=== PATIENT | male | born 1975 | race Hispanic/Latino ===

== ENCOUNTER 2019-11-10 21:46 | Inpatient (IN) | payer OTHER, SELFPAY ==
[~2019-11-10] VITALS: Ht 180.3 cm; Wt 116.6 kg
[2019-11-10] MEDS ORDERED: SODIUM CHLORIDE 0.9% 1000ML 1,000 ML IV STA (21:48)
[2019-11-10] MEDS ORDERED: PIPER-TAZ 3.375 GM 50 ML IV STA (21:48)
--- NOTE | 2019-11-10 21:54 | Emergency Department Note ---
History of Present Illnes History of Present Illness History of Present Illness This is a 44 year old male presents to the ED for dyspnea of 2 days duration. Denies CP or cough. . Historian: Patient Arrival Mode: Car Bread Packer Required: No Onset (how long ago): day(s) Duration (how long): day(s) (2) Timing of current episode: constant Progression: worsening Context: recent illness Relieving factors: none Exacerbating factors: none Associated symptoms: shortness of breath, weakness Past Medical/Family History Physician Review I have reviewed the patient's past medical and family history. Any updates have been documented here. Past Medical History Recent Fever: Yes Clinical Suspicion of Infectio: Yes New/Unexplained Change in Ment: No Past Medical History: None Past Surgical History: None Social History Smoking Cessation: Never Smoker Alcohol Use: None Any Illegal Drug Use: No Review of Systems Review of Systems Constitutional: malaise, weakness EENTM: no symptoms Respiratory: dyspnea Gastrointestinal: no symptoms Genitourinary: no symptoms Musculoskeletal: no symptoms Neurological: no symptoms Psychological: no symptoms Endocrine: no symptoms Hematological/Lymphatic: no symptoms Review of other systems All other systems reviewed and negative. Physical Exam Related Data Allergies: Coded Allergies: No Known Allergies (Unverified , 11/10/19) Triage Vital Signs Vital Signs Date Time Temp Pulse Resp B/P (MAP) Pulse Ox O2 Delivery O2 Flow Rate FiO2 11/10/19 21:46 101.0 118 24 171/123 100 11/11/19 09:18 Room Air 11/12/19 00:15 2.0 Vital signs reviewed: Yes Physical Exam CONSTITUTIONAL Constitutional: well-developed, well-nourished HENT HENT: normocephalic, atraumatic, oropharynx clear/moist, nose normal HENT L/R: left ext ear normal, right ext ear normal EYES Eyes: PERRL, conjunctivae normal NECK Neck: ROM normal PULMONARY Pulmonary: effort normal, breath sounds normal CARDIOVASCULAR Cardiovascular: tachycardia GASTROINTESTINAL Abdominal: soft, nontender, bowel sounds normal GENITOURINARY Genitourinary: exam deferred SKIN Skin: warm, dry MUSCULOSKELETAL Musculoskeletal: ROM normal NEUROLOGICAL Neurological: alert, oriented x 3, no gross motor or sensory deficits PSYCHOLOGICAL Psychological: mood/affect normal, judgement normal Results Laboratory Laboratory Laboratory Tests Test 11/10/19 22:24 11/10/19 22:00 White Blood Count 6.37 x10e3/uL (4.8-10.8) Red Blood Count 4.33 x10e6/uL (4.3-5.7) Hemoglobin 12.0 g/dL (14.0-18.0) Hematocrit 38.2 % (38.2-49.6) Mean Corpuscular Volume 88.2 fL (81-99) Mean Corpuscular Hemoglobin 27.7 pg (28-32) Mean Corpuscular Hemoglobin Concent 31.4 g/dL (31-35) Red Cell Distribution Width 12.9 % (11.7-14.4) Platelet Count 186 x10e3/uL (140-360) Neutrophils (%) (Auto) 77.7 % (38.7-80.0) Lymphocytes (%) (Auto) 7.8 % (18.0-39.1) Monocytes (%) (Auto) 13.0 % (4.4-11.3) Eosinophils (%) (Auto) 0.6 % (0.0-6.0) Basophils (%) (Auto) 0.6 % (0.0-1.0) Neutrophils # (Auto) 4.9 (2.1-6.9) Lymphocytes # (Auto) 0.5 (1.0-3.2) Monocytes # (Auto) 0.8 (0.2-0.8) Eosinophils # (Auto) 0.0 (0.0-0.4) Basophils # (Auto) 0.0 (0.0-0.1) Absolute Immature Granulocyte (auto 0.02 x10e3/uL (0-0.1) Urine Color Yellow (YELLOW) Urine Clarity Clear (CLEAR) Urine pH 6 (5 - 7) Urine Specific [place] 1.020 (1.010-1.025) Urine Protein 1+ (NEGATIVE) Urine Glucose (UA) Negative (NEGATIVE) Urine Ketones Negative (NEGATIVE) Urine Blood 2+ (NEGATIVE) Urine Nitrite Negative (NEGATIVE) Urine Bilirubin Negative (NEGATIVE) Urine Urobilinogen 0.2 mg/dL (0.2 - 1) Urine Leukocyte Esterase Negative (NEGATIVE) Urine RBC 11-20 /HPF (0-5) Urine WBC 0-5 /HPF (0-5) Urine Epithelial Cells None /LPF (NONE) Urine Bacteria None /HPF (NONE) Sodium Level 142 mmol/L (136-145) Potassium Level 4.0 mmol/L (3.5-5.1) Chloride Level 109 mmol/L (98-107) Carbon Dioxide Level 19 mmol/L (22-29) Anion Gap 18.0 mmol/L (8-16) Blood Urea Nitrogen 54 mg/dL (7-26) Creatinine 6.20 mg/dL (0.72-1.25) Estimat Glomerular Filtration Rate 10 ML/MIN (60-) BUN/Creatinine Ratio 9 (6-25) Glucose Level 80 mg/dL (74-118) Lactic Acid Level 1.5 mmol/L (0.5-2.0) Calcium Level 6.1 mg/dL (8.4-10.2) Total Bilirubin 0.3 mg/dL (0.2-1.2) Aspartate Amino Transf (AST/SGOT) 14 IU/L (5-34) Alanine Aminotransferase (ALT/SGPT) 14 IU/L (0-55) Alkaline Phosphatase 102 IU/L (40-150) Creatine Kinase 373 IU/L (30-200) Creatine Kinase MB 1.20 ng/mL (0-5.0) Troponin I < 0.001 ng/mL (0-0.300) B-Type Natriuretic Peptide 478.5 pg/mL (0-100) Total Protein 7.1 g/dL (6.5-8.1) Albumin 3.6 g/dL (3.5-5.0) Globulin 3.5 g/dL (2.3-3.5) Albumin/Globulin Ratio 1.0 (0.8-2.0) Lab results reviewed: Yes Imaging Imaging results reviewed: Yes Impressions [place] [id number] Patient Name: MONAE RAMÍREZ JR MR #: [id number] : 1975 Age/Sex: 44/M Req #: [id number] Adm Physician: Ordered by: GRACY DOCKERY DO Report #: [id number] Location: ER Room/Bed: ____ Procedure: [id number] CT/CT CHEST WO Exam Date: 11/10/19 Exam Time: 2340 REPORT STATUS: Signed CT chest without enhancement CPT code: 23846 INDICATION: Shortness of breath, fever, mid chest pain TECHNIQUE: Thin collimation axial images obtained from the thoracic inlet to the level of the diaphragm without intravenous contrast. Dose reduction techniques used: Automated exposure control, adjustment of the mAs and/or kVp according to patient size, standardized low-dose protocol, and/or iterative reconstruction technique. RADIATION DOSE: Total DLP: 510.15 mGy*cm Estimated effective dose: (DLP x 0.015 x size factor) mSv CTDIvol has been reviewed. It is below the limits set by the Radiation Protocol Committee (RPC). COMPARISON: None. CHEST FINDINGS: Lymph nodes: No enlarged axillary or supraclavicular lymph nodes. Increased number of mediastinal lymph nodes measuring up to 8 mm in short axis. Thyroid: Visualized portions are normal in size. Low attenuating nodule in the anterior right lobe measures 9 mm. Mediastinum: The heart is top normal in size with small pericardial effusion. Main pulmonary artery measures 2.8 cm in diameter. The ascending aorta measures 3.3 cm in diameter. The esophagus is collapsed. Lungs: Right: Diffuse bronchial wall thickening. Mild interlobular septal thickening in the lung bases with peribronchovascular groundglass attenuation. Left: Diffuse bronchial wall thickening with peribronchovascular groundglass attenuation. Mild interlobular septal thickening of the lower lobe. No infiltrates or nodules. Pleura: No pleural effusion or pleural based mass. ABDOMEN FINDINGS: The kidneys are enlarged and contains multiple cysts of varying sizes and attenuations. Visualized portions of the liver, gallbladder, pancreas, spleen, and adrenal glands are unremarkable. Bones: There are healing fractures of the manubrium and right ribs #7 through 9. Vertebral body heights are symmetric. IMPRESSION: 1. Diffuse bronchial wall thickening and peribronchovascular groundglass airspace opacities suggestive of viral pneumonia. No confluent infiltrates. Mild interlobular septal thickening of the lower lobes. No infiltrates. 2. Enlarged kidneys containing multiple cysts suggestive of autosomal dominant polycystic renal disease. 3. Healing rib and sternal fractures as described above. Signed by: Dr. Naya Linares MD on 11/11/2019 12:18 AM Dictated By: NAYA LINARES MD Transcribed By: PILLO on 11/11/1917 COPY TO: DOCKERYGRACY ~ Procedures 12 Lead ECG Interpretation Bread Packer: Interpreted by ED physician Date: Nov 10, 2019 Time: 21:53 Prior WAFER FABRICATION OPERATOR tracings: reviewed Rhythm: sinus tachycardia Conduction: incomplete RBBB ST segments normal: Yes ST segments depression: V4, V5, V6 T waves normal: No T wave depression: V4, V5, V6 Other findings: LVH, LVH with strain, prolonged QTc interval Clinical Impression: abnormal ECG Assessment & Plan Assessment & Plan Final Impression: (1) Elevated blood pressure reading (2) Hypocalcemia (3) Viral pneumonia (4) Renal failure (5) COVID-19 Assessment & Plan patient wide range of symptoms and abnormal lab values. Patient confirmed COVID- 19 positive with abnormal creatinine levels. Plan to admit to the hospital for further evaluation. Depart Disposition: ADMITTED Medications in the ED Sodium Chloride 1,000 ml @ 0 mls/hr Q0M STAT IV Last administered on 11/10/19at 22:08; Admin Dose 999 MLS/HR; Start 11/10/19 at 21:48; Stop 11/10/19 at 21:52; Status DC Piperacillin Sod/ Tazobactam Sod 50 ml @ 50 mls/hr ONCE STAT IV Last administered on 11/10/19at 22:09; Admin Dose 50 MLS/HR; Start 11/10/19 at 21:48; Stop 11/10/19 at 22:47; Status DC Acetaminophen 650 mg ONCE ONCE PO Last administered on 11/10/19at 22:31; Admin Dose 650 MG; Start 11/10/19 at 22:30; Stop 11/10/19 at 22:31; Status DC Morphine Sulfate 4 mg ONCE PRN IV SEVERE PAIN (7-10) Last administered on 11/11/19at 10:10; Admin Dose 4 MG; Start 11/10/19 at 23:00; Stop 11/17/19 at 22:59 Calcium Gluconate 4.65 meq/Sodium Chloride 60 ml @ 60 mls/hr ONCE ONCE IV Last administered on 11/11/19at 00:23; Admin Dose 60 MLS/HR; Start 11/11/19 at 00:00; Stop 11/11/19 at 00:59; Status DC Hydralazine HCl 10 mg NOW STAT IV Last administered on 11/11/19at 00:23; Admin Dose 10 MG; Start 11/11/19 at 00:01; Stop 11/11/19 at 00:14; Status DC Calcium Gluconate 4.65 meq STK-MED ONCE .ROUTE ; Start 11/11/19 at 00:15; Stop 11/11/19 at 00:10; Status DC Sodium Chloride 50 ml @ ud STK-MED ONCE .ROUTE ; Start 11/11/19 at 00:16; Stop 11/11/19 at 00:10; Status DC Ondansetron HCl 4 mg Q4H PRN IV NAUSEA AND VOMITING Last administered on 11/11/19at 10:10; Admin Dose 4 MG; Start 11/11/19 at 00:45; Stop 11/11/19 at 14:15; Status DC Morphine Sulfate 4 mg Q4H PRN IV SEVERE PAIN (7-10); Start 11/11/19 at 00:45; Stop 11/11/19 at 13:58; Status DC GRACY DOCKERY DO Nov 10, 2019 21:54
[2019-11-10 22:20] LABS: BASOPHILS % 0.6 % (0.0-1.0); EOSINOPHILS % 0.6 % (0.0-6.0); HEMATOCRIT 38.2 % (38.2-49.6); LYMPHOCYTES # (AUTO) 0.5 (1.0-3.2); LYMPHOCYTES % 7.8 % (18.0-39.1); MEAN CORPUSCULAR HEMOGLOBIN 27.7 pg (28-32); MEAN CORPUSCULAR HGB CONC 31.4 g/dL (31-35); MEAN CORPUSCULAR VOLUME 88.2 fL (81-99); MONOCYTES # (AUTO) 0.8 (0.2-0.8); NEUTROPHILS # (AUTO) 4.9 (2.1-6.9); NEUTROPHILS % 77.7 % (38.7-80.0); PLATELET COUNT 186 x10e3/uL (140-360); RED BLOOD COUNT 4.33 x10e6/uL (4.3-5.7); RED CELL DISTRIBUTION WIDTH 12.9 % (11.7-14.4)
[2019-11-10] MEDS ORDERED: ACETAMINOPHEN 325 MG TAB PO ONE (22:30)
[2019-11-10 22:33] LABS: BILIRUBIN,URINE NEGATIVE (NEGATIVE); CLARITY,URINE CLEAR (CLEAR); COLOR,URINE YELLOW (YELLOW); KETONES,URINE NEGATIVE (NEGATIVE); LEUKOCYTE ESTERASE ,URINE NEGATIVE (NEGATIVE); NITRITE,URINE NEGATIVE (NEGATIVE); URINE UROBILINOGEN 0.2 mg/dL (0.2 - 1)
[2019-11-10 22:34] LABS: PROTEIN,URINE DIPSTICK 1+ (NEGATIVE)
[2019-11-10 22:40] LABS: ALANINE AMINOTRANSFERASE 14 IU/L (0-55); ALBUMIN 3.6 g/dL (3.5-5.0); ALKALINE PHOSPHATASE 102 IU/L (40-150); BLOOD UREA NITROGEN 54 mg/dL (7-26); BUN/CREATININE RATIO 9 (6-25); CARBON DIOXIDE 19 mmol/L (22-29); CHLORIDE 109 mmol/L (98-107); CREATINE KINASE 373 IU/L (30-200); EST GLOMERULAR FILTRATION RATE 10 ML/MIN (60-); GLUCOSE 80 mg/dL (74-118); SODIUM 142 mmol/L (136-145)
[2019-11-10 22:45] LABS: WBC,URINE (MAN) 0-5 /HPF (0-5)
[2019-11-10 22:46] LABS: CALCIUM 6.1 mg/dL (8.4-10.2)
[2019-11-10 22:48] LABS: B-TYPE NATRIURETIC PEPTIDE2 478.5 pg/mL (0-100)
[2019-11-10] MEDS: MORPHINE SULFATE INJ 4 MG/ML INJ 1ML IV PRN (23:08)
[2019-11-11] VITALS (8 sets, daily range): BP systolic 131–146; BP diastolic 91–100
[2019-11-11] MEDS ORDERED: HYDRALAZINE HCL 20 MG/ML VIAL IV STA (00:01)
--- NOTE | 2019-11-11 00:11 | Diagnostic Imaging Report ---
EXAMINATION: CHEST SINGLE (PORTABLE) COMPARISON: None INDICATION: Shortness of breath, fever, chest pain ^Y ^ERMD ORDER ^[id number] ^2340 ^Y DISCUSSION: Frontal view of the chest obtained at 2312 hours. HEART AND MEDIASTINUM: The heart is top normal in size. The descending thoracic aorta is tortuous LINES: None. LUNGS/PLEURA: The lungs are well inflated and clear. No pneumonia or pulmonary edema. Mild diffuse bronchial wall thickening. No pleural effusion or pneumothorax. BONES AND SOFT TISSUES: No focal osseous lesion. The soft tissues are normal. IMPRESSION: Mild diffuse bronchial wall thickening suggestive of bronchitis. No infiltrates. Signed by: Dr. Diego Linares MD on 11/11/2019 12:08 AM
[2019-11-11] MEDS ORDERED: CALCIUM GLUCONATE 10% INJ 0.465 MEQ/ML VIAL ONE (00:15)
[2019-11-11] MEDS ORDERED: SODIUM CHLORIDE 0.9% 50ML 50 ML ONE (00:16)
--- NOTE | 2019-11-11 00:21 | Diagnostic Imaging Report ---
CT chest without enhancement CPT code: 62249 INDICATION: Shortness of breath, fever, mid chest pain TECHNIQUE: Thin collimation axial images obtained from the thoracic inlet to the level of the diaphragm without intravenous contrast. Dose reduction techniques used: Automated exposure control, adjustment of the mAs and/or kVp according to patient size, standardized low-dose protocol, and/or iterative reconstruction technique. RADIATION DOSE: Total DLP: 510.15 mGy*cm Estimated effective dose: (DLP x 0.015 x size factor) mSv CTDIvol has been reviewed. It is below the limits set by the Radiation Protocol Committee (RPC). COMPARISON: None. CHEST FINDINGS: Lymph nodes: No enlarged axillary or supraclavicular lymph nodes. Increased number of mediastinal lymph nodes measuring up to 8 mm in short axis. Thyroid: Visualized portions are normal in size. Low attenuating nodule in the anterior right lobe measures 9 mm. Mediastinum: The heart is top normal in size with small pericardial effusion. Main pulmonary artery measures 2.8 cm in diameter. The ascending aorta measures 3.3 cm in diameter. The esophagus is collapsed. Lungs: Right: Diffuse bronchial wall thickening. Mild interlobular septal thickening in the lung bases with peribronchovascular groundglass attenuation. Left: Diffuse bronchial wall thickening with peribronchovascular groundglass attenuation. Mild interlobular septal thickening of the lower lobe. No infiltrates or nodules. Pleura: No pleural effusion or pleural based mass. ABDOMEN FINDINGS: The kidneys are enlarged and contains multiple cysts of varying sizes and attenuations. Visualized portions of the liver, gallbladder, pancreas, spleen, and adrenal glands are unremarkable. Bones: There are healing fractures of the manubrium and right ribs #7 through 9. Vertebral body heights are symmetric. IMPRESSION: 1. Diffuse bronchial wall thickening and peribronchovascular groundglass airspace opacities suggestive of viral pneumonia. No confluent infiltrates. Mild interlobular septal thickening of the lower lobes. No infiltrates. 2. Enlarged kidneys containing multiple cysts suggestive of autosomal dominant polycystic renal disease. 3. Healing rib and sternal fractures as described above. Signed by: Dr. Diego Linares MD on 11/11/2019 12:18 AM
[2019-11-11] MEDS ORDERED: MORPHINE SULFATE INJ 4 MG/ML INJ 1ML IV PRN (00:45)
[2019-11-11] MEDS ORDERED: ONDANSETRON HCL INJ 2MG/ML 2ML 2 MG/ML VIAL IV PRN ×2 (00:45→14:00)
--- OUTSIDE RECORDS SUMMARY | 2019-11-11 01:54 | XMS REPORT | Continuity of Care Document ---
Author Author [facility] t Organization [facility] Address [address] [place]quez [address] [place] [id number] Phone Unavailable Care Team Providers Care Jr. Java Developer Name Role Phone GRACY DOCKERY Unavailable Problems This patient has no known problems. Allergies, Adverse Reactions, Alerts This patient has no known allergies or adverse reactions. Medications This patient has no known medications. Procedures This patient has no known procedures. Results Test Description Test Time Test Comments Results Result Comments Source CT CHEST WO 2019-11-11 00:09:00 [place] [address] Patient Name: MONAE RAMÍREZ JR MR #: [id number] : 1975 Age/Sex: 44/M Req #: [id number] Adm Physician: Ordered by: GRACY DOCKERY DO Report #: [id number] Location: ER Room/Bed: Procedure: [id number] CT/CT CHEST WO Exam Date: 11/10/19 Exam Time: 2340 REPORT STATUS: Signed CT chest without enhancement CPT code: 78865 INDICATION: Shortness of breath, fever, mid chest pain TECHNIQUE: Thin collimation axial images obtained from the thoracic inlet to the level of the diaphragm without intravenous contrast. Dose reduction tawanda hniques used: Automated exposure control, adjustment of the mAs and/or kVp according to patient size, standardized low-dose protocol, and/or iterative reconstruction technique. RADIATION DOSE: Total DLP: 510.15 mGy*cm Estimated effective dose: (DLP x 0.015 x size factor) mSv CTDIvol has been reviewed. It is below the limits set by the Radiation Protocol Committee (RPC). COMPARISON: None. CHEST FINDINGS: Lymph nodes: No enlarged axillary or supraclavicular lymph nodes. Increased number of mediastinal lymph nodes measuring up to 8 mm in short axis. Thyroid: Visualized portions are normal in size. Low attenuating nodule in the anterior right lobe measures 9 mm. Mediastinum: The heart is top normal in size with small pericardial effusion. Main pulmonary artery measures 2.8 cm in diameter. The ascending aorta measures 3.3 cm in diameter. The esophagus is collapsed. Lungs: Right: Diffuse bronchial wall thickening. Mild interlobular septal thickening in the lung bases with peribronchovascular groundglass attenuation. Left: Diffuse bronchial wall thickening with peribronchovascular groundglass attenuation. Mild interlobular septal thickening of the lower lobe. No infiltrates or nodules. Pleura: No pleural effusion or pleural based mass. ABDOMEN FINDINGS: The kidneys are enlarged and contains multiple cysts of varying sizes and attenuations. Visualized portions of the liver, gallbladder, pancreas, spleen, and adrenal glands are unremarkable. Bones: There are healing fractures of the manubriu m and right ribs #7 through 9. Vertebral body heights are symmetric. IMPRESSION: 1. Diffuse bronchial wall thickening and peribronchovascular groundglass airspace opacities suggestive of viral pneumonia. No confluent infiltrates. Mild interlobular septal thickening of the lower lobes. No infiltrates. 2. Enlarged kidneys containing multiple cysts suggestive of autosomal dominant polycystic renal disease. 3. Healing rib and sternal fractures as described above. Signed by: Dr. Naya Linares MD on 11/11/2019 12:18 AM Dictated By: NAYA LINARES MD Transcribed By: PILLO on 11/11/1917 COPY TO: GRACY DOCKERY DO CHEST SINGLE (PORTABLE) 2019-11-11 00:06:00 [place] [address] Patient Name: MONAE RAMÍREZ JR MR #: [id number] : 1975 Age/Sex: 44/M Req #: [id number] Adm Physician: Ordered by: GRACY DOCKERY DO Report #: [id number] Location: ER Room/Bed: Procedure: [id number] DX/CHEST SINGLE (PORTABLE) Exam Date: 11/10/19 Exam Time: 2340 REPORT STATUS: Signed EXAMINATION: CHEST SINGLE (PORTABLE) COMPARISON: None INDICATION: Shortness of breath, fever, chest pain Y ERMD ORDER [id number] 2340 Y DISCUSSION: Frontal view of the chest obtained at 2312 hours. HEART AND MEDIASTINUM: The heart is top normal in size. The descending thoracic aorta is tortuous LINES: None. LUNGS/PLEURA: The lungs are well inflated and clear. No pneumonia or pulmonary edema. Mild diffuse bronchial wall thickening. No pleural effusion or pneumothorax. BONES AND SOFT TISSUES: No focal osseous lesion. The soft tissues are normal. IMPRESSION: Mild diffuse bronchial wall thickening suggestive of bronchitis. No infiltrates. Signed by: Dr. Naya Linares MD on 11/11/2019 12:08 AM Dictated By: NAYA LINARES MD Transcribed By: PILLO on 11/11/197 COPY TO: GRACY DOCKERY DO
[2019-11-11] MEDS: ACETAMINOPHEN 325 MG TAB PO PRN ×2 (01:59→15:36)
[2019-11-11] MEDS ORDERED: ACETAMINOPHEN 325 MG TAB ONE (02:06)
[2019-11-11 07:10] LABS: AMPHETAMINES SCREEN,URINE NEGATIVE (NEGATIVE); BENZODIAZEPINES SCREEN,URINE NEGATIVE (NEGATIVE); PHENCYCLIDINE SCREEN,URINE NEGATIVE (NEGATIVE)
[2019-11-11 07:14] LABS: CREATINE KINASE 331 IU/L (30-200)
--- NOTE | 2019-11-11 07:38 | NUR ---
Left voicemail to Dr. Lloyd informing about the renal consult.
[2019-11-11] MEDS ORDERED: SODIUM CHLORIDE 0.9% 250ML 250 ML ONE (08:02)
[2019-11-11] MEDS: AZITHROMYCIN 500MG/NS 250 ML 250 ML IV SCH (08:03)
[2019-11-11 08:35] LABS: ALBUMIN 3.5 g/dL (3.5-5.0); ALBUMIN/GLOBULIN RATIO 1.1 (0.8-2.0); ANION GAP 19.1 mmol/L (8-16); CREATININE, SERUM 6.04 mg/dL (0.72-1.25); POTASSIUM 4.1 mmol/L (3.5-5.1)
[2019-11-11 08:39] LABS: CALCIUM 6.2 mg/dL (8.4-10.2)
[2019-11-11] MEDS: MORPHINE SULFATE INJ 4 MG/ML INJ 1ML IV PRN (10:10)
[2019-11-11] MEDS ORDERED: CALCIUM GLUCONATE 10% INJ 4.65 MEQ in SODIUM CHLORIDE 0.9% 50ML 50 ML IV ONE ×3 (14:00)
[2019-11-11] MEDS ORDERED: SODIUM CHLORIDE 0.9% 1000ML 1,000 ML IV ONE (14:15)
[2019-11-11] MEDS: CALCIUM CARBONATE 500 MG CHEWABLE TABS PO SCH ×2 (14:17→21:00)
[2019-11-11] MEDS: CEFTRIAXONE SOD 1 GM/NS 50 ML 50 ML IV SCH (14:20)
--- NOTE | 2019-11-11 14:35 | NUR ---
Spoke with Dr. Damian' answering service regarding consultation.
--- NOTE | 2019-11-11 15:45 | Consultation ---
DATE OF CONSULTATION: HISTORY OF PRESENT ILLNESS: Mr. Jacobson is a 44-year-old gentleman who comes into the emergency room with shortness of breath for 2 days. The patient came to the emergency room where he was admitted. There was no fever and no chills. He had a temperature of 101.2 when he first came. His told me there was no fever. The patient has been sick for 2 days. PAST MEDICAL HISTORY: Denies. PAST SURGICAL HISTORY: Denies. ALLERGIES: NKA. SOCIAL HISTORY: Negative. LABORATORY DATA: White count 6.37, hemoglobin 12. His COVID-19 was positive. PHYSICAL EXAMINATION: GENERAL: He is currently alert and oriented, does not seem to be in acute distress. VITAL SIGNS: Stable, currently afebrile. HEENT: He is not icteric. NECK: Supple. CHEST: Clear. HEART: S1 and S2. No S3, S4, or murmur. ABDOMEN: Soft. IMPRESSION: COVID-19 on admission, pneumonia. We will put him on Rocephin and azithromycin, vitamin C and zinc supplement. MD PATRICK Gonzalez/VICENTE /[id number]
--- NOTE | 2019-11-11 15:59 | NUR ---
[facility] RECEIVED FOR HOME O2. CALL TO THE PT IN THE ROOM AND CELL PHONE LISTED ON FACE SHEET. NO ANSWER, LEFT VM. CALLED TO [facility]G UNIT; SPOKE W [facility]INCENT. STATES ROOM HAS NOT PHONE, BUT THEY WILL PUT ONE IN THERE. CM WILL F/U W THE PT.
--- NOTE | 2019-11-11 16:00 | Consultation ---
DATE OF CONSULTATION: Pulmonary Critical Care Consultation CHIEF COMPLAINT: Dyspnea. HISTORY OF PRESENT ILLNESS: The patient is a 44-year-old man. He has a history of hypertension. He reports shortness of breath for 1 to 2 days. He denies cough. He did have a fever earlier this morning. He came to the emergency department. His chest CT showed infiltrate, suggestive of viral pneumonia. His COVID test was positive. He also had a positive blood test for renal disease. His creatinine is 6 and his CO2 is 15. PAST MEDICAL HISTORY: 1. Hypertension. 2. The patient denies any prior history of kidney disease. 3. The patient denies any prior cardiac history. PAST SURGICAL HISTORY: Noncontributory. ALLERGIES: NO KNOWN DRUG ALLERGIES. FAMILY HISTORY: His mother has cysts on her kidneys. REVIEW OF SYSTEMS: The patient did have some fevers at home. He is not having any headache. He denies neck pain. He does not have cough. He does have some shortness of breath. He is not having any chest pain. He does not complain of abdominal pain. There is no nausea or vomiting. He has no leg edema. PHYSICAL EXAMINATION: VITAL SIGNS: The patient is afebrile. The blood pressure is 144/100 and saturation is 100%. The pulse is 88 and respiratory rate is 16. HEENT: Shows no facial swelling or erythema. CARDIAC: Reveals a regular rate and rhythm with normal S1 and S2. LUNGS: Auscultation of lungs reveals clear breath sounds bilaterally. There is no wheezing. ABDOMEN: Soft and nontender. There is no rebound or guarding. EXTREMITIES: Shows no leg edema or calf tenderness. There is no cyanosis or clubbing. SKIN: Shows no rashes. NEUROLOGICAL: Shows no focal abnormalities. RADIOGRAPHIC DATA: CT scan of the chest shows ground-glass opacities, suggestive of viral pneumonia and enlarged kidneys with multiple cysts. LABORATORY DATA: BUN to creatinine ratio is 52 to 6.04. Carbon dioxide is 15 and the chloride is 111. Calcium is 6.2. IMPRESSION: 1. Viral pneumonia and COVID-19 infection. 2. Fupve-ro-yujizll renal failure. 3. Polycystic kidney disease. 4. Hypertension. PLAN: 1. Oxygen. 2. Zithromax. 3. Judicious use of IV fluids and monitoring of creatinine. 4. Nephrology consultation. 5. Cardiology consultation. MD SHAY Iqbal/VICENTE /[id number]
--- NOTE | 2019-11-11 16:24 | Diagnostic Imaging Report ---
EXAM: US RENAL RETROPERITONEAL COMP DATE: 11/11/2019 2:21 PM INDICATION: Renal failure COMPARISON: CT chest without contrast from 11/10/2019 FINDINGS: The right kidney is enlarged measuring 13.2 x 8.2 x 7.1 cm. Cortical thickness is decreased and cortical echogenicity is increased. There are innumerable renal cysts present. The largest cyst measures 3.3 x 2.8 x 2.9 cm. No definite solid renal mass, hydronephrosis, or shadowing calculi is appreciated. The left kidney is enlarged measuring 16.1 x 10.0 x 9.2 cm. Cortical thickness is decreased cortical echogenicity is increased. There are innumerable renal cysts present. The largest measures 4.1 x 3.0 x 3.97 m. No definite solid renal mass, hydronephrosis, or shadowing calculi is appreciated. The partially distended urinary bladder demonstrates no significant abnormalities. Bilateral ureteral jets are noted. IMPRESSION: Enlarged, multicystic kidneys suggestive of autosomal dominant polycystic kidney disease. No sonographically evident solid renal mass or hydronephrosis appreciated. Signed by: Dr. Luca Oleary MD on 11/11/2019 4:20 PM
[2019-11-11] MEDS: ENOXAPARIN 30 MG/0.3 ML SYR SC SCH (16:33)
--- NOTE | 2019-11-11 16:45 | NUR ---
Left message to answering service of Dr. Graf regarding VBG results as instructed. Awaiting for call back.
--- NOTE | 2019-11-11 17:52 | NUR ---
Notified Dr. Graf the VBG results. No orders given.
--- NOTE | 2019-11-11 18:00 | Consultation ---
DATE OF CONSULTATION: Initial Nephrology Consultation Report REASON FOR CONSULTATION: Acute kidney injury. HISTORY OF PRESENT ILLNESS: Mr. Jacobson is a 44-year-old male, who presents to the hospital secondary to some dyspnea. He was found to be COVID positive. The history is very limited, but I am being asked to see him because his serum creatinine and BUN are 54 and 6.2 respectively. Later labs done, show BUN and creatinine of 52 and 6.0. We do not have much of old history available. I do not know what his baseline renal function is. We do not have any old records available. PAST MEDICAL HISTORY: There is not much of a past medical history as from what can be obtained. I do not see that he has any past medical history. PAST SURGICAL HISTORY: Unknown. SOCIAL HISTORY: Cannot be obtained. PHYSICAL EXAMINATION: Largely deferred secondary to the patient's COVID status. VITAL SIGNS: His blood pressure is 144/100, pulse is 88, respirations 16, afebrile. GENERAL: The patient is a male. He is ambulating. The remainder of the physical exam is deferred because of the COVID status. It is reported the patient has no edema. LABORATORIES: The patient's sodium 141, potassium 4.1, chloride 111, bicarbonate 15, BUN and creatinine 52 and 6.0 respectively, and calcium 6.2. Albumin is 3.5. On CT exam, the patient has enlarged kidneys with multiple cysts. Urinalysis shows 1+ protein, 2+ blood, 11-20 red cells and 0-5 white cells, no bacteria. IMPRESSION/PLAN: 1. Acute kidney injury in a patient, who is COVID positive versus acute kidney injury on chronic kidney disease versus chronic kidney disease. 2. COVID positive. 3. Hypocalcemia. 4. Possible metabolic acidosis. 5. Pneumonia. 6. Viral syndrome. 7. Possible autosomal dominant polycystic kidney disease. PLAN: At the present time, the patient is getting IV fluids. We do not know really how much of this is underlying chronic kidney disease and how much of this is acute. He is getting IV fluids. We will continue to give IV fluid to see how much of the renal function improves with IV fluids and IV contrast should be avoided. His calcium is very low, I will give him calcium gluconate and also oral Tums. I will check a venous blood gas to make sure the decrease in serum bicarbonate is secondary to metabolic acidosis and not respiratory alkalosis with metabolic compensation. We will try to get old records from the patient. I will follow the patient with you. Depending on what the venous blood gas shows, if it shows it is acidosis then we probably will start some sodium bicarbonate and probably will start orally, but the main thing is to correct his calcium before we correct his acidosis so that the hypocalcemia does not get worse. When the patient is over with his infections in a few days, I think collecting a 24-hour urine collection for protein and creatinine clearance will be in order. I will follow the patient with you. Thank you, Dr. Hamilton, for this consultation. Ather MD CHARITY Holguin/VICENTE /[id number]
--- NOTE | 2019-11-11 20:21 | History and Physical ---
CHIEF COMPLAINT: Chest pain and shortness of breath. HISTORY OF PRESENT ILLNESS: This is a 44-year-old male with past medical history of high blood pressure, presented to the ER with complaints of shortness of breath and chest pain, both started 2 days ago. He reported noted shortness of breath with exertion. He denies any fever, chills, nausea, vomiting, abdominal pain, ill contacts. He was noted to have . Denies any kidney disease. PAST MEDICAL HISTORY: Hypertension. PAST SURGICAL HISTORY: Reports tonsillectomy and debridement of his lower extremity . FAMILY MEDICAL HISTORY: Reports mother has kidney disease and grandmother with diabetes. SOCIAL HISTORY: He denies any tobacco, alcohol, or illicit drug use. ALLERGIES: NO KNOWN DRUG ALLERGIES. REVIEW OF SYSTEMS: Twelve systems negative except for as noted above. PHYSICAL EXAMINATION: VITAL SIGNS: Temperature 99.5, pulse 82, respirations 18, blood pressure 134/92, pulse ox is 100% on room air. GENERAL: No acute distress. HEENT: Normocephalic atraumatic. NECK: Supple. LUNGS: Decreased breath sounds. CARDIOVASCULAR: Regular rate and rhythm. GI: Soft and nontender. Obese. NEUROLOGIC: Alert, awake, and oriented x3. MUSCULOSKELETAL: Moves all extremities. SKIN: Dry. LABORATORY DATA: WBC 6.37, hemoglobin 12.0, hematocrit 38.2, platelets 186. Sodium 142, potassium 4.0, CO2 19, BUN of 54, creatinine 6.2, estimated GFR is 10. Glucose 80. Lactic acid 1.5, calcium UA negative. French PCR is detected. Blood culture is pending. IMAGING DATA: Chest x-ray, mild diffuse bronchial wall thickening suggestive of bronchitis, no infiltrates. CT chest shows diffuse bronchial wall thickening and peribronchovascular ground-glass opacity suggestive of bilateral pneumonia as above. IMPRESSION AND PLAN: 1. Acute respiratory distress due to viral COVID-19 pneumonia. He was started on Rocephin and azithromycin. Pulmonary and ID on board. 2. Acute kidney injury versus history of polycystic renal disease and diagnosed. Creatinine is 6.2. Nephrology has been consulted. Renal ultrasound is pending. 3. Questionable congestive heart failure. BNP is 478. Echocardiogram was done, which showed EF of 34%. We will consult Cardiology for further evaluation. 4. History of hypertension. Currently controlled. We will monitor for now. 5. Hypocalcemia. Calcium is 6.2. We will defer to Renal. 6. Elevated creatinine currently. Questionable rhabdomyolysis. Continue IV fluid and repeat labs. 7. DVT prophylaxis. Continue Lovenox. Dictated by MATY Mcdaniels Maribel Hamilton MD MY/MODL /[id number]
[2019-11-11] MEDS ORDERED: ZOLPIDEM TARTRATE 5 MG TAB PO PRN (21:00)
[2019-11-12] VITALS (8 sets, daily range): BP systolic 109–144; BP diastolic 75–115
[2019-11-12] MEDS: ACETAMINOPHEN 325 MG TAB PO PRN ×2 (00:12→22:49)
[2019-11-12 05:53] LABS: BASOPHILS % 0.2 % (0.0-1.0); EOSINOPHILS % 0.2 % (0.0-6.0); HEMATOCRIT 36.8 % (38.2-49.6); HEMOGLOBIN 11.5 g/dL (14.0-18.0); LYMPHOCYTES # (AUTO) 0.8 (1.0-3.2); LYMPHOCYTES % 18.1 % (18.0-39.1); MEAN CORPUSCULAR HEMOGLOBIN 27.4 pg (28-32); MEAN CORPUSCULAR HGB CONC 31.3 g/dL (31-35); MEAN CORPUSCULAR VOLUME 87.6 fL (81-99); MONOCYTES # (AUTO) 0.7 (0.2-0.8); MONOCYTES % 15.1 % (4.4-11.3); NEUTROPHILS # (AUTO) 2.9 (2.1-6.9); NEUTROPHILS % 66.2 % (38.7-80.0); PLATELET COUNT 157 x10e3/uL (140-360); RED CELL DISTRIBUTION WIDTH 13.1 % (11.7-14.4)
[2019-11-12 07:19] LABS: ALBUMIN 3.2 g/dL (3.5-5.0); ALBUMIN/GLOBULIN RATIO 1.1 (0.8-2.0); ANION GAP 16.6 mmol/L (8-16); CREATININE, SERUM 5.95 mg/dL (0.72-1.25); POTASSIUM 4.6 mmol/L (3.5-5.1)
[2019-11-12 07:22] LABS: CALCIUM 6.6 mg/dL (8.4-10.2)
[2019-11-12] MEDS: ASCORBIC ACID 500 MG TAB PO SCH (08:15)
[2019-11-12] MEDS: CALCIUM CARBONATE 500 MG CHEWABLE TABS PO SCH ×3 (08:15→21:14)
[2019-11-12] MEDS: AZITHROMYCIN 500MG/NS 250 ML 250 ML IV SCH (08:15)
[2019-11-12] MEDS ORDERED: CALCIUM GLUCONATE 10% INJ 4.65 MEQ in SODIUM CHLORIDE 0.9% 50ML 50 ML IV ONE (08:45)
--- NOTE | 2019-11-12 09:22 | Progress Note ---
DATE: SUBJECTIVE: The patient is afebrile. He still has some cough. He is not complaining of dyspnea or chest pain. PHYSICAL EXAMINATION: VITAL SIGNS: The blood pressure is 133/102, saturation is 100% on 2 L. The pulse is 80. HEENT: No facial swelling or erythema. CARDIAC: Reveals a regular rate and rhythm with normal S1 and S2. LUNGS: Auscultation of lungs shows clear breath sounds bilaterally. There is no wheezing. ABDOMEN: Soft and nontender. There is no rebound or guarding. EXTREMITIES: No leg edema or calf tenderness. There is no cyanosis or clubbing. SKIN: No rashes. NEUROLOGICAL: No focal abnormalities. LABORATORY DATA: The white blood cell count is 4.3 and the hemoglobin is 11.5. The platelet count is 157. The BUN to creatinine ratio is 52 to 5.95. Calcium is 6.6 and the albumin is 3.2. The carbon dioxide is 15. IMPRESSION: 1. Acute on chronic renal failure. 2. COVID-19 and viral pneumonia. 3. Hypertension. PLAN: 1. Continue Zithromax. 2. Continue oxygen. 3. Continue to monitor creatinine. 4. Discuss management of polycystic kidney disease with Nephrology and Dr. Hamilton. MD SHAY qIbal/VICENTE /[id number]
[2019-11-12] MEDS: CEFTRIAXONE SOD 1 GM/NS 50 ML 50 ML IV SCH (14:43)
[2019-11-12] MEDS: SODIUM BICARBONATE 650 MG TAB PO SCH (16:24)
[2019-11-12] MEDS: ENOXAPARIN 30 MG/0.3 ML SYR SC SCH (16:24)
--- NOTE | 2019-11-12 16:31 | NUR ---
progress [id number]
[2019-11-12] MEDS ORDERED: CARVEDILOL 3.125 MG TAB PO SCH (17:00)
--- NOTE | 2019-11-12 18:00 | Progress Note ---
DATE: 11/12/2019 CONSULTANTS: 1. Dr. Benjamin Falcon with Pulmonology. 2. Dr. Lloyd with Nephrology. 3. Dr. Medeiros with Infectious Disease. 4. Dr. Damian with Cardiology. CHIEF COMPLAINT: Shortness of breath. SUBJECTIVE: The patient reports he is feeling better today, shortness of breath improved. He denies any chest pain, nausea, vomiting, or shortness of breath. PHYSICAL EXAMINATION: VITAL SIGNS: Temperature 98.6, pulse is 86, respirations 18, blood pressure 127/96, pulse ox is 100% on 2 L of nasal cannula. GENERAL: No acute distress. HEENT: Normocephalic, atraumatic. CARDIAC: Regular rate and rhythm. LUNGS: Decreased breath sounds. ABDOMEN: Soft and nontender, obese. MUSCULOSKELETAL: Moves all extremities. No edema noted. SKIN: Dry and intact. NEUROLOGIC: Alert, awake, and oriented x3. PSYCH: Calm. LABORATORY DATA: WBC 4.31, hemoglobin 11.5, hematocrit 36.8. Sodium 138, potassium 4.6, CO2 15, creatinine 5.95. Estimated GFR is 10. Lactic acid 1.5, calcium 6.6, AST 14, ALT 10. Renal ultrasound shows enlarged multi-cystic kidneys suggestive of autosomal dominant polycystic kidney disease. No hydronephrosis or renal mass noted. IMPRESSION: 1. Acute respiratory distress due to viral COVID-19 pneumonia. Continue on Rocephin and azithromycin. Pulmonary and ID on board. 2. Acute on chronic kidney disease. Renal ultrasound shows likely polycystic kidney disease. Creatinine is 5.95 today. We will continue to monitor. 3. Acute systolic congestive heart failure. BNP is 478. Echo with an EF of 25 to 30%. New diagnosis. Cardiology on the case. 4. History of hypertension. We will continue current medications. 5. Hypocalcemia. We will defer to Renal. 6. Elevated CK. CK 295. We will repeat labs today. 7. Obesity. BMI of 37. 8. Deep vein thrombosis prophylaxis. Continue Lovenox. Dictated by Kathy Fierro, MATY Yiching James Hamilton MD MY/MODL /[id number]
--- NOTE | 2019-11-12 18:49 | Consultation ---
DATE OF CONSULTATION: 11/12/2019 Cardiology Consultation. CONSULTING PHYSICIAN: Tk Nelson M.D., Interventional Cardiology REASON FOR CONSULTATION: Shortness of breath. HISTORY OF PRESENT ILLNESS: A 44-year-old man with history of morbid obesity, presents with worsening fatigue and dyspnea on exertion, associated with cough and documented fever. He ruled in with COVID-19 positive PCR and abnormal imaging studies concerning for underlying viral pneumonia. Incidentally, BNP was noted to have elevation at 478 and troponin I has been negative x3. We have been consulted to further evaluate. Sean feels better since admission. He has no current complaints other than dyspnea with moderate activity. He denies orthopnea, paroxysmal nocturnal dyspnea, chest discomfort or any prior known history of cardiovascular disease. REVIEW OF SYSTEMS: Negative except for as noted above. PAST MEDICAL HISTORY: As per HPI. ALLERGIES: NO KNOWN DRUG ALLERGIES. PAST SURGICAL HISTORY: Denies smoking, alcohol, or drugs. FAMILY HISTORY: Noncontributory. PHYSICAL EXAMINATION: VITAL SIGNS: Temperature 98.9, heart rate 80, blood pressure 109/70, respiratory rate 16, and O2 saturation 100% on nasal cannula. GEN Alert, active, oriented Neck No JVD, supple CHEST: With scattered rales. CARDIOVASCULAR: Regular rate and rhythm. Normal S1, S2. No S3. No S4. No murmurs, no rubs. ABDOMEN: Soft. Bowel sounds positive. EXTREMITIES: Trace edema. CARDIOVASCULAR MEDICATIONS: Reviewed Lovenox 30 mg subcu daily. LABORATORY DATA: Reviewed, sodium 138, potassium 4.6, chloride 111, bicarbonate 15, BUN 52, creatinine 5.9, glucose 96. White blood cells 4, hemoglobin 11.5, platelets 157. AST 14, ALT 10, and alkaline phosphatase 73. BNP 478. Troponin I negative x3. UDS negative. Blood cultures negative x2 days. Ionized calcium is low at 0.9. Echocardiogram reviewed, remarkable for left ventricular systolic function of 25% to 30%. ASSESSMENT AND PLAN: 1. A 44-year-old woman presents with COVID-19, community-acquired pneumonia. 2. Metabolic acidosis. 3. Acute on chronic renal failure. 4. Ultrasound studies and imaging studies, concerning for polycystic kidney disease. 5. Hypertension. 6. Left ventricular systolic function 25% to 30% on inpatient echocardiogram with dilated left ventricle, acute on chronic systolic heart failure. 7. Hypokalemia. 8. Anemia. RECOMMEND: 1. Add carvedilol 3.125 mg every 12 hours with holding parameters. Continue metabolic optimization per Nephrology expertise. 2. Monitor volume status closely. Defer diuretic management to Nephrology given significant increase in creatinine and underlying metabolic acidosis. MD TAMIKA De Leon/VICENTE /[id number]
--- NOTE | 2019-11-12 19:00 | NUR ---
Resumed care of patient. Patient awake and resting in bed, no s/s of distress at this time. Bed locked and in lowest position, side rails up x3, call light placed within reach. Patient instructed to call for assistance if needed, verbalized understanding. All safety measures in place. Will continue to monitor.
[2019-11-12] MEDS: CARVEDILOL 3.125 MG TAB PO SCH (21:14)
[2019-11-13] VITALS (8 sets, daily range): BP systolic 125–149; BP diastolic 92–102
[2019-11-13 06:13] LABS: ANION GAP 16.2 mmol/L (8-16); CREATININE, SERUM 5.85 mg/dL (0.72-1.25); PHOSPHORUS 5.3 MG/DL (2.3-4.7); POTASSIUM 4.2 mmol/L (3.5-5.1)
[2019-11-13 06:16] LABS: CALCIUM 6.9 mg/dL (8.4-10.2)
--- NOTE | 2019-11-13 06:17 | NUR ---
CRITICAL LAB:CALCIUM Received a call from lab with a Critical Result of Calcium 6.9 . Daily gonzalez RN for the patient was notified Addendum: 11/13/19 at 0619 by Concha Alicea RN Amended: Links added.
--- NOTE | 2019-11-13 06:32 | NUR ---
Notified Dr. Hamilton regarding calcium level of 6.9. No new orders received.
[2019-11-13 06:55] LABS: CALCIUM IONIZED 0.9 mmol/L (1.09-1.30)
--- NOTE | 2019-11-13 07:23 | NUR ---
ASSUMED CARE. AAOX3. RESTING IN BED. ACYANOTIC. NO DISTRESS NOTED. CALL LIGHT IN REACH. SIDERAILS UP X2. BED LOW.
[2019-11-13] MEDS: AZITHROMYCIN 500MG/NS 250 ML 250 ML IV SCH (08:49)
[2019-11-13] MEDS: CALCIUM CARBONATE 500 MG CHEWABLE TABS PO SCH ×3 (08:50→21:45)
[2019-11-13] MEDS: ASCORBIC ACID 500 MG TAB PO SCH (08:50)
[2019-11-13] MEDS: SODIUM BICARBONATE 650 MG TAB PO SCH ×2 (08:50→17:34)
[2019-11-13] MEDS: CARVEDILOL 3.125 MG TAB PO SCH ×2 (08:51→21:45)
--- NOTE | 2019-11-13 09:49 | NUR ---
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 LET NURSE KNOW WHAT LABS TO ORDER FOR DIALYSIS.
--- NOTE | 2019-11-13 10:07 | Progress Note ---
DATE: SUBJECTIVE: Mr. Farmer is feeling much better. His breathing is much better. REVIEW OF SYSTEMS: He is feeling stronger. PHYSICAL EXAMINATION: GENERAL: He is currently alert, oriented, does not seem to be in acute distress. VITAL SIGNS: Stable, currently afebrile. HEENT: He is not icteric. NECK: Supple. CHEST: Clear bilaterally. COR: S1-S2. No murmurs. ABDOMEN: Soft. IMPRESSION: 1. Coronavirus disease-19 pneumonia, getting better. 2. Acute on chronic kidney disease. 3. History of hypertension. 4. History of persistent kidney disease. The patient will be discharged home with [facility]. Follow up in 2 weeks to stay in isolation, to be discharged home in the morning. Discussed with the patient, answered all his questions. MD PATRICK Gonzalez/VICENTE /[id number]
--- NOTE | 2019-11-13 14:54 | Progress Note ---
DATE: SUBJECTIVE: The patient is afebrile. He still has some malaise. PHYSICAL EXAMINATION: VITAL SIGNS: The blood pressure is 129/100. Saturation is 99%. HEENT: No facial swelling or erythema. CARDIAC: Regular rate and rhythm with a normal S1, S2. LUNGS: Auscultation of lungs reveals clear breath sounds bilaterally. There is no wheezing. ABDOMEN: Soft, nontender. There is no rebound or guarding. EXTREMITIES: No leg edema or calf tenderness. There is no cyanosis or clubbing. SKIN: No rashes. NEUROLOGICAL: No focal abnormalities. LABORATORY DATA: BUN to creatinine ratio is 54-5.85. The carbon dioxide is 15. The ionized calcium is 0.9. IMPRESSION: 1. Acute viral pneumonia and coronavirus disease-19 infection. 2. Acute on chronic kidney disease. 3. Acute systolic congestive heart failure. 4. Hypertension. PLAN: 1. Continue current cardiac regimen. 2. Continue to monitor creatinine. 3. Continue antibiotics. 4. Continue oxygen. Benjamin Falcon MD [facility]/MODL /[id number]
[2019-11-13] MEDS: CEFTRIAXONE SOD 1 GM/NS 50 ML 50 ML IV SCH (15:03)
--- NOTE | 2019-11-13 15:49 | NUR ---
AAOX3. ACYANOTIC. PATIENT TRANSFERRED TO NUCLEAR MEDICINE DEPARTMENT AT APPROXMATELY 1530 VIA WHEELCHAIR. NO DISTRESS NOTED.
--- NOTE | 2019-11-13 16:49 | NUR ---
progress [id number]
[2019-11-13] MEDS: ENOXAPARIN 30 MG/0.3 ML SYR SC SCH (17:34)
--- NOTE | 2019-11-13 19:09 | Progress Note ---
DATE: 11/13/2019 CONSULTANTS: 1. Dr. Benjamin Falcon with Pulmonology. 2. Dr. Lloyd with Nephrology. 3. Dr. Medeiros with Infectious Disease. 4. Dr. Damian with Cardiology. CHIEF COMPLAINT: Shortness of breath. SUBJECTIVE: The patient is sitting up in bed with no acute distress. He denies any chest pain, shortness of breath, nausea, vomiting, fever, or chills. PHYSICAL EXAMINATION: VITAL SIGNS: Temperature 96.8, pulse is 84, respirations 18, blood pressure 129/100, pulse ox is 99% on 2 L nasal cannula. GENERAL: No acute distress. HEENT: Normocephalic, atraumatic. CARDIOVASCULAR: Regular rate and rhythm, S1, S2 heard. LUNGS: With decreased breath sounds. ABDOMEN: Soft and nontender. Obese. MUSCULOSKELETAL: Moves all extremities. No edema. SKIN: Dry and intact. NEUROLOGIC: Alert, awake, and oriented x3. LABORATORY DATA: Sodium 140, potassium 4.2, CO2 15, anion gap 16.2, creatinine 5.85, estimated GFR is 11, calcium is 6.9, ionized calcium is 0.9, phosphorus 5.3, pending calcium and parathyroid hormone. IMPRESSION: 1. Acute respiratory distress due to COVID-19 pneumonia. Continue on Rocephin and azithromycin. Pulmonary and Infectious Disease on board. 2. Acute on chronic kidney disease. Renal ultrasound showed polycystic kidney disease. Creatinine with not much improvement 5.85 today. Nephrology on the case. Plan to have temporary catheter placement and dialysis started. 3. Acute systolic congestive heart failure. Echo with EF of 25%-30%. Started on carvedilol and fluid management per renal. Cardiology on the case. Medical management advised. 4. History of hypertension. Stable on beta blockers. 5. Hypocalcemia. Replaced by Renal. 6. Elevated CK. Trending down 239 today. 7. Obesity with BMI of 37. Lifestyle modification. 8. Deep vein thrombosis prophylaxis. Continue Lovenox. PLAN: To continue current treatment, temporary cath placement planned for dialysis. Dictated by MATY Mcdaniels Rafaelaching James Hamilton MD MY/MODL /[id number]
--- NOTE | 2019-11-13 19:09 | Progress Note ---
DATE: SUBJECTIVE: Mr. Jacobson is feeling well. There are no new complaints. His breathing is better. REVIEW OF SYSTEMS: HEENT: Negative. PULMONARY and CARDIAC: Negative. PHYSICAL EXAMINATION: GENERAL: He is currently alert, oriented, does not seem to be in acute distress. VITAL SIGNS: Stable, currently afebrile. HEENT: Not icteric. NECK: Supple. CHEST: Clear. ABDOMEN: Soft. LABORATORY DATA: Blood cultures are negative. IMPRESSION: 1. COVID-19, pneumonia. Overall, clinically improving. 2. Chronic kidney disease, creatinine 5.95. Renal is following. Acidosis probably due to acute on chronic kidney disease. 3. Congestive heart failure. 4. From Infectious Disease point of view, he is currently on Lovenox, Rocephin, azithromycin to finish 5 days, this is day #2. MD PATRICK Gonzalez/VICENTE /[id number]
[2019-11-13 19:41] LABS: INR 0.95; PROTHROMBIN TIME 13.2 seconds (11.9-14.5)
--- NOTE | 2019-11-13 19:44 | Progress Note ---
DATE: 11/13/2019 Cardiology Progress Note SUBJECTIVE: Mr. Jacobson denies any chest pain today. He has no other complaints at this time. OBJECTIVE: VITAL SIGNS: Temperature 98.2, heart rate 90, blood pressure 149/102, respiratory rate 18, O2 saturation 99% on room air. GENERAL: In no acute distress, alert. NECK: No JVD. CHEST: Clear to auscultation. CARDIOVASCULAR: Regular rate and rhythm. Normal S1, S2. No S3 or S4. ABDOMEN: Soft. Bowel sounds positive. EXTREMITIES: No edema. CARDIOVASCULAR MEDICATIONS: Reviewed. Carvedilol 3.125 mg every 12 hours, Lovenox 30 mg subcu daily. LABORATORY DATA: Reviewed. Sodium 140, potassium 4.2, chloride 113, bicarbonate 15, BUN 54, creatinine 5.8, glucose 83. White blood cells 4.3, hemoglobin 11.5, platelets 157. AST 14, ALT 10, and alkaline phosphatase 73. Total bilirubin 0.3. ASSESSMENT AND PLAN: A 44-year-old man presents with: 1. COVID-19 positive pneumonia. 2. Acute on chronic systolic heart failure. 3. Acute on chronic renal failure with metabolic acidosis and anemia. RECOMMEND: 1. Continue carvedilol. 2. Volume optimization and metabolic optimization per Nephrology expertise. 3. Continue supportive care for COVID. 4. assessment advised a later date once renal function recovered and/or if declared end-stage renal disease. MD TAMIKA De Leon/SHAUNNAL /[id number]
[2019-11-13] MEDS ORDERED: CALCIUM GLUCONATE 10% INJ 4.65 MEQ in SODIUM CHLORIDE 0.9% 50ML 100 ML IV ONE (21:00)
[2019-11-13] MEDS: ACETAMINOPHEN 325 MG TAB PO PRN (23:22)
[2019-11-14] VITALS (8 sets, daily range): BP systolic 125–149; BP diastolic 87–111
[2019-11-14 06:07] LABS: ANION GAP 19.4 mmol/L (8-16); CREATININE, SERUM 5.65 mg/dL (0.72-1.25); POTASSIUM 4.4 mmol/L (3.5-5.1)
[2019-11-14 06:09] LABS: CALCIUM 6.7 mg/dL (8.4-10.2)
[2019-11-14] MEDS: SODIUM BICARBONATE 650 MG TAB PO SCH ×3 (08:28→16:00)
[2019-11-14] MEDS: AZITHROMYCIN 500MG/NS 250 ML 250 ML IV SCH (08:28)
[2019-11-14] MEDS: ASCORBIC ACID 500 MG TAB PO SCH ×2 (08:28→09:00)
[2019-11-14] MEDS: CALCIUM CARBONATE 500 MG CHEWABLE TABS PO SCH ×5 (08:28→20:45)
[2019-11-14] MEDS: CARVEDILOL 3.125 MG TAB PO SCH ×3 (08:29→20:45)
--- NOTE | 2019-11-14 09:01 | Progress Note ---
DATE: SUBJECTIVE: The patient is scheduled to have dialysis catheter placed today. He will begin dialysis. He denies cough or dyspnea. He is not having fevers. PHYSICAL EXAMINATION: VITAL SIGNS: The patient is afebrile. The blood pressure is 131/96, saturation is 100%. HEENT: No facial swelling or erythema. CARDIAC: Reveals regular rate and rhythm with normal S1 and S2. LUNGS: Auscultation of lungs reveals clear breath sounds bilaterally. There is no wheezing. ABDOMEN: Soft and nontender. There is no rebound or guarding. EXTREMITIES: No leg edema or calf tenderness. There is no cyanosis or clubbing. SKIN: No rashes. IMPRESSION: 1. Trpxj-ze-jxtdqia renal failure. 2. Systolic cardiomyopathy. 3. Acute on chronic systolic congestive heart failure. 4. Viral pneumonia and COVID-19 infection. PLAN: 1. The patient will begin dialysis today. 2. Continue current cardiac regimen. 3. Continue supportive care for his COVID-19. Benjamin Falcon MD [facility]/SHAUNNAL /[id number]
--- NOTE | 2019-11-14 09:20 | NUR ---
Telephone visit made by blockers skiver. Auto Damage Trainee provided empathic listening and prayer. Provided information on how to reach blockers skiver, if needed. Will follow as able. ANTON [facility] O: [phone]
--- NOTE | 2019-11-14 09:20 | NUR ---
Telephone visit made by . Pt states his keith is and has the same illness. provided empathic listening and prayer. Provided information on how to reach procedure rn, if needed. Will follow as able. RODERICK [facility] O: [phone] Addendum: 11/14/19 at 0941 by Roderick Velasco CHAP CORRECTION: This note is inaccurate. Note belongs to a different patient. Please disregard this note! RODERICK MARY JANEAR [facility] Department O: [phone]
--- NOTE | 2019-11-14 09:42 | NUR ---
GAVE PACKET OF INFORMATION WITH COMM[employer] [employer] FOR ASSISTANCE WITH LOW TO NO INCOME TO PATIENT. RESOURCES THAT PATIENT MAY BE ABLE TO FOLLOW UP UPON DISCHARGE. PT EDUCATED ON EACH RESOURCE AND UNDERSTANDING HOW TO FOLLOW UP TO SEE IF QUALIFIED FOR EACH RESOURCE.
--- NOTE | 2019-11-14 10:26 | NUR ---
SPOKE WITH NURSE AND PT ABOUT FACILITY CHOICE FOR DIALYSIS. WILL FAX TO ADMISSION LINE FOR SNG, SIGNED CHOICE FILED IN CHART. PRINTED WHAT WAS AVAILABLE TO ME AND FAXED TO [phone]. CALLED AND SPOKE WITH IVANIA AND LET KNOW REFERRAL IS ON WAY AND THAT IT IS A COVID POSITIVE PT, SHE STATES THE POSITIVES GO TO THE [place] LOCATION, BUT REFERRAL WOULD START FOR THE [place] LOCATION. WILL FAX LABS, POST OP REPORT FOR THE CATHETER PLACEMENT AND DIALYSIS NOTES THEY ARE GIVEN AND OBTAINED.
--- NOTE | 2019-11-14 10:39 | NUR ---
DR PRIETO CALLED AND TOLD CM TO SEND TO [facility] BECAUSE THEY ARE ACCEPTING PTS. WILL COMPLETE THE FORMS AND FAX WHAT I HAVE AND SEND UPDATES.
--- NOTE | 2019-11-14 10:49 | NUR ---
[place] [facility] [place] AND COMPLETED REFERRAL SPECIFIC SHEET TO [place] AND FAXED TO
[2019-11-14] MEDS: CEFTRIAXONE SOD 1 GM/NS 50 ML 50 ML IV SCH (15:33)
[2019-11-14] MEDS: ENOXAPARIN 30 MG/0.3 ML SYR SC SCH ×2 (16:00→18:12)
--- NOTE | 2019-11-14 19:00 | NUR ---
Resumed care of patient. Patient awake and sitting in chair by window, no s/s of distress at this time. Patient instructed to call for assistance if needed, verbalized understanding. All safety measures in place. Will continue to monitor.
--- NOTE | 2019-11-14 20:05 | Progress Note ---
DATE: 11/14/2019 SUBJECTIVE: Mr. Jacobson is lying in bed comfortably. He is doing well overall. He is going to have a dialysis catheter tomorrow and then we can be arranged for dialysis. REVIEW OF SYSTEMS: Otherwise unremarkable. PHYSICAL EXAMINATION: GENERAL: He is currently alert, oriented. VITAL SIGNS: Stable, afebrile. HEENT: He is not icteric. NECK: Supple. CHEST: Clear. HEART: S1, S2. ABDOMEN: Soft. IMPRESSION AND PLAN: 1. Coronavirus disease-19 pneumonia, resolved. 2. Acute on chronic congestive heart failure. 3. Chronic kidney disease. 4. Systolic congestive heart failure consist of a cardiomyopathy. 5. Obesity. From Infectious Disease point of view, can discontinue antibiotic. Community-acquired pneumonia, resolved. We will continue Rocephin and azithromycin. Continue with the Lovenox. Discharge planning when dialysis is arranged. MD PATRICK Gonzalez/VICENTE /[id number]
[2019-11-14] MEDS: ACETAMINOPHEN 325 MG TAB PO PRN (20:56)
--- NOTE | 2019-11-14 22:45 | NUR ---
Spoke with dialysis nurse and clarified that patient does not yet have access, and is scheduled for catheter placement tomorrow morning.
--- NOTE | 2019-11-14 23:05 | Progress Note ---
DATE: Cardiology Progress Note SUBJECTIVE: No new complaints. OBJECTIVE: VITAL SIGNS: Temperature 98.2, heart rate 90, blood pressure 131/96, respiratory rate 18, and O2 saturation 99%. BMI 37. GENERAL: In no acute distress. Alert. NECK: No JVD. CHEST: Clear to auscultation. CARDIOVASCULAR: Regular rate and rhythm. Normal S1 and S2. ABDOMEN: Soft. EXTREMITIES: Trace edema. CARDIOVASCULAR MEDICATIONS: Reviewed. Carvedilol 3.125 mg every 12 hours and Lovenox 30 mg subcutaneous daily. STUDIES: Reviewed. Potassium 4.4, bicarbonate 15, and creatinine 5.6. Hemoglobin 11.5 and platelets 157. INR 0.9. ASSESSMENT AND PLAN: A 44-year-old man with, 1. Community-acquired COVID-19 pneumonia. 2. Wnouo-kz-cftuibu renal failure. 3. Metabolic acidosis. 4. Anemia. 5. Dwplq-ca-yfpmhnd renal failure. RECOMMEND: 1. Continue carvedilol. 2. Continue DVT prophylaxis. 3. Plans for dialysis catheter placement today and likely dialysis. Tk Nelson MD AFSebastien/MODL /[id number] MTDD
[2019-11-15] VITALS (10 sets, daily range): BP systolic 107–134; BP diastolic 81–107
--- NOTE | 2019-11-15 00:35 | Progress Note ---
DATE: 11/14/2019 CONSULTANTS: 1. Dr. Benjamin Falcon with Pulmonology. 2. Dr. Lloyd with Nephrology. 3. Dr. Medeiros with Infectious Disease. 4. Dr. Nelson with Cardiology. CHIEF COMPLAINT: Shortness of breath. SUBJECTIVE: The patient seen in the room with no acute distress. He denies any chest pain, shortness of breath, nausea, vomiting, fever, or chills. He reports he is feeling much better. Awaiting on HD catheter placement. PHYSICAL EXAMINATION: VITAL SIGNS: Temperature 98.4, pulse is 93, respirations 21, blood pressure 139/107, pulse ox is 100% on room air. GENERAL: No acute distress. HEENT: Normocephalic, atraumatic. CARDIOVASCULAR: Regular rate and rhythm. S1, S2 heard. LUNGS: Clear to auscultation. ABDOMEN: Soft and nontender. MUSCULOSKELETAL: Moves all extremities. No edema noted. SKIN: Dry and intact. NEUROLOGIC: Alert, awake, and oriented x3. LABORATORY DATA: Sodium 141, potassium 4.4, CO2 of 15, BUN 51, creatinine 5.65. Estimated GFR is 11. Calcium 6.7, ionized calcium 0.9, parathyroid is 72. IMPRESSION: 1. Acute respiratory distress due to viral pneumonia with COVID-19. Continue Rocephin and azithromycin. Pulmonary and ID on the case. 2. Acute renal failure. Renal ultrasound showed polycystic kidney disease. Creatinine 5.65 today. Nephrology on the case. Temporary HD catheter placement pending, and we will start dialysis. 3. Acute systolic congestive heart failure. Echo with EF of 25% to 30%. Started on carvedilol and fluid management per Renal. Cardiology on the case. Recommend medical management at this time. 4. History of hypertension. Stable on beta blockers. 5. Hypocalcemia. We will defer to Renal. 6. Elevated CK. Trending down. 7. Obesity with a BMI of 37. Lifestyle modification. 8. Deep vein thrombosis prophylaxis. Continue on Lovenox. PLAN: To continue current treatment, pending HD catheter placement and dialysis setup. Dictated by MATY Mcdaniels Maribel [place] MD MY/MODL :07:32 /[id number]
--- NOTE | 2019-11-15 04:37 | NUR ---
Spoke to Dr. Hamilton regarding patient's elevated temp of 100.2. Received orders to give IV Tylenol 1000 mg x 1.
[2019-11-15] MEDS ORDERED: ACETAMINOPHEN 1000 MG/100 ML IV STA (04:38)
[2019-11-15] MEDS: HYDRALAZINE HCL 20 MG/ML VIAL IV PRN (05:00)
--- NOTE | 2019-11-15 07:40 | NUR ---
patient leaving unit to go to IR for cath placement.
[2019-11-15] MEDS ORDERED: MIDAZOLAM HCL 2 MG/2 ML VIAL ONE (07:48)
[2019-11-15] MEDS ORDERED: FENTANYL CITRATE/PF 100MCG/2 ML INJ ONE (07:49)
[2019-11-15] MEDS ORDERED: HEPARIN SOD (PORCINE) 1000 UNIT/ML SDV ONE (07:49)
[2019-11-15] MEDS ORDERED: SODIUM CHLORIDE 0.9% 250ML 250 ML ONE (07:52)
--- NOTE | 2019-11-15 08:30 | NUR ---
report from IR- 14.5 [place] hemodialysis catheter packed with 3200 u heparin. line ready to use, okay to resume previous diet.
--- NOTE | 2019-11-15 08:30 | NUR ---
patient returned from IR. right chest wall cath in place. dressing cdi.
--- NOTE | 2019-11-15 09:20 | NUR ---
dialysis nurse at bedside to begin dialysis. patient consented. aware of treatment planned today and tomorrow.
[2019-11-15] MEDS: CARVEDILOL 3.125 MG TAB PO SCH ×2 (09:40→21:08)
[2019-11-15] MEDS: SODIUM BICARBONATE 650 MG TAB PO SCH ×2 (09:40→18:01)
[2019-11-15] MEDS: ASCORBIC ACID 500 MG TAB PO SCH (09:40)
[2019-11-15] MEDS: CALCIUM CARBONATE 500 MG CHEWABLE TABS PO SCH ×3 (09:40→21:08)
[2019-11-15] MEDS ORDERED: SODIUM CHLORIDE 0.9% 1000ML 2,000 ML ONE (10:06)
[2019-11-15] MEDS ORDERED: SODIUM CHLORIDE 0.9% 250ML 500 ML IV PRN (10:15)
[2019-11-15] MEDS ORDERED: HEPARIN SOD (PORCINE) 1000 UNIT/ML SDV IV PRN (10:15)
[2019-11-15] MEDS ORDERED: MANNITOL 25% 12.5GM/50 ML VIAL IV PRN (10:15)
[2019-11-15] MEDS ORDERED: SODIUM CHLORIDE 0.9% 1000ML 2,000 ML IV PRN (10:15)
[2019-11-15] MEDS: ACETAMINOPHEN 325 MG TAB PO PRN ×2 (10:56→18:02)
--- NOTE | 2019-11-15 12:47 | NUR ---
patient finished with dialysis. per dialysis nurse, no volume removed. blood only cleansed. patient tolerated well. vitals stable. sitting up for lunch. wctm.
--- NOTE | 2019-11-15 14:58 | NUR ---
SENT UPDATES TO [facility]
--- NOTE | 2019-11-15 16:13 | Diagnostic Imaging Report ---
PROCEDURE: Tunneled dialysis catheter placement Procedural Personnel Attending physician(s): Ceferino Boothe MD Fellow physician(s): None Resident physician(s): None Advanced practice provider(s): None Pre-procedure diagnosis: Acute kidney injury Post-procedure diagnosis: Same Indication (QCDR): Performance of hemodialysis Additional clinical history: None Complications: No immediate complications. IMPRESSION: Insertion of right-sided tunneled dialysis catheter, with tip in the expected location of the right atrium. Plan: The catheter may be used immediately. PROCEDURE SUMMARY: - Venous access with ultrasound guidance - Tunneled dialysis catheter insertion with fluoroscopic guidance - Additional procedure(s): None PROCEDURE DETAILS: Pre-procedure Consent: Informed consent for the procedure including risks, benefits and alternatives was obtained and time-out was performed prior to the procedure. Preparation (MIPS): The site was prepared and draped using all elements of maximal sterile barrier technique including sterile gloves, sterile gown, cap, mask, large sterile sheet, sterile ultrasound probe cover, hand hygiene and cutaneous antisepsis with 2% chlorhexidine. Medical reason for site preparation exception (MIPS): Not applicable Anesthesia/sedation Level of anesthesia/sedation: Moderate sedation (conscious sedation) 1mg Versed, 50mcg Fentanyl Anesthesia/sedation administered by: Independent trained observer under attending supervision with continuous monitoring of the patient?s level of consciousness and physiologic status Total intra-service sedation time (minutes): 30 Access Local anesthesia was administered. The vessel was sonographically evaluated and determined to be patent. Real time ultrasound was used to visualize needle entry into the vessel and a permanent image was stored. Vein accessed (QCDR): Internal jugular vein Internal jugular vein patency (QCDR): Patent or otherwise accessible on at least one side Access technique: Micropuncture set with 21 gauge needle Catheter placement An incision was made near the venous access site and the catheter was tunneled subcutaneously to the venous access site. The catheter was advanced via a peel-away sheath into the vein under fluoroscopic guidance. Catheter tip location was fluoroscopically verified and a permanent image was stored. Catheter placed: Covidien Palindrome Catheter cuff-to-tip length (cm): 19 Catheter flush: Heparin (1000 units/mL) Closure A sterile dressing was applied. Access site closure technique: Tissue adhesive Catheter securement technique: Non-absorbable suture Contrast Contrast agent: None Contrast volume (mL): NA Radiation Dose Fluoroscopy time (minutes): 0.1 Reference air kerma (mGy): 1.1 Additional Details Additional description of procedure: None Equipment details: None Specimens removed: None Estimated blood loss (mL): Less than 10 Standardized report: [id number] Attestation Signer name: Ceferino Boothe MD I attest that I was present for the entire procedure. I reviewed the stored images and agree with the report as written. Signed by: Ceferino Boothe MD on 11/15/2019 4:09 PM
--- NOTE | 2019-11-15 18:14 | Progress Note ---
DATE: SUBJECTIVE: Mr. Jacobson is feeling better. His breathing is better. PHYSICAL EXAMINATION: GENERAL: He is currently alert, oriented, does not seem in acute distress. VITAL SIGNS: Stable, currently afebrile. HEENT: He is not icteric. NECK: Supple. CHEST: Crackles bilateral. COR: S1 and S2. No murmur. ABDOMEN: Soft. IMPRESSION: 1. From Infectious Disease point of view, the patient is stable. The patient to be discharged home. However, we are waiting on dialysis. 2. Acute on chronic kidney failure, polycystic kidney disease, congestive heart failure. The patient will be discharged home once dialysis is arranged. MD PATRICK Gonzalez/VICENTE /[id number]
--- NOTE | 2019-11-15 20:16 | NUR ---
Patient ambulates by himself. Refused bed alarm. No complain of dizziness or light headedness.
--- NOTE | 2019-11-15 22:36 | Progress Note ---
DATE: 11/15/2019 CONSULTANTS: 1. Dr. Benjamin Falcon with Pulmonology. 2. Dr. Lloyd with Nephrology. 3. Dr. Medeiros with Infectious Disease. 4. Dr. Nelson with Cardiology. CHIEF COMPLAINT: Shortness of breath and generalized weakness. SUBJECTIVE: The patient is resting in bed, status post HD catheter placement this morning and dialysis for 2 hours. He denies any shortness of breath, chest pain, shortness of breath, nausea, or vomiting. He reports having headache post dialysis. PHYSICAL EXAMINATION: VITAL SIGNS: Temperature 98.1, pulse is 90, respirations 24, blood pressure 125/92, pulse ox is 100% on room air. GENERAL: No acute distress. HEENT: Normocephalic, atraumatic. CARDIOVASCULAR: S1, S2 heard. LUNGS: Clear to auscultation. ABDOMEN: Soft and nontender. Obese. MUSCULOSKELETAL: Moves all extremities. No edema noted. SKIN: Dry and intact. NEUROLOGIC: Alert, awake, and oriented x3. IMAGING: Tunneled HD catheter in place. IMPRESSION: 1. Acute respiratory distress due to viral pneumonia, coronavirus disease 2019, on Rocephin and azithromycin. Pulmonary and ID on the case. 2. End-stage renal disease. New diagnosis. Tunneled catheter placed and dialysis started today per Nephrology. 3. Acute systolic congestive heart failure. Echo with EF of 25% to 30%. Continue on carvedilol and fluid management per renal. Cardiology on the case, continue medical management. 4. History of hypertension, stable on beta-blockers. 5. Hypocalcemia. Defer to Renal. 6. Elevated CK. Trended down. 7. Obesity with BMI of 37. Lifestyle modifications. 8. Deep venous thrombosis prophylaxis. Lovenox. PLAN: To continue current treatment, HD initiated today, we will await on outpatient HD. Dictated by MATY Mcdaniels Maribel [place] MD MY/MODL /[id number]
[2019-11-16] VITALS (8 sets, daily range): BP systolic 107–186; BP diastolic 55–106
[2019-11-16] MEDS: HYDRALAZINE HCL 20 MG/ML VIAL IV PRN (00:27)
[2019-11-16] MEDS: ACETAMINOPHEN 325 MG TAB PO PRN ×2 (00:27→16:14)
--- NOTE | 2019-11-16 07:32 | NUR ---
ASSUMED CARE. PT RESTING IN BED. AAOX3. ACYANOTIC. NO DISTRESS NOTED. CALL LIGHT IN REACH. SIDE RAILS UP X2. BED LOW AND LOCKED.
[2019-11-16] MEDS: ASCORBIC ACID 500 MG TAB PO SCH (08:01)
[2019-11-16] MEDS: CALCIUM CARBONATE 500 MG CHEWABLE TABS PO SCH ×3 (08:01→20:29)
[2019-11-16] MEDS: CARVEDILOL 3.125 MG TAB PO SCH ×2 (08:01→20:29)
[2019-11-16] MEDS: SODIUM BICARBONATE 650 MG TAB PO SCH ×2 (08:01→16:00)
--- NOTE | 2019-11-16 09:46 | Diagnostic Imaging Report ---
EXAMINATION: CHEST SINGLE (PORTABLE) INDICATION: ^CHF and ESRD ^20191116 ^0900 ^Y COMPARISON: CT chest FINDINGS: AP view TUBES and LINES: Right IJ hemodialysis catheter with tip overlying the cavoatrial junction. LUNGS: Lungs are well inflated. Minimal atelectasis in both perihilar regions and left lower lobe, unchanged. There is no evidence of pneumonia or pulmonary edema. PLEURA: No pleural effusion or pneumothorax. HEART AND MEDIASTINUM: The cardiomediastinal silhouette is unremarkable.. BONES AND SOFT TISSUES: No acute osseous lesion. Soft tissues are unremarkable. UPPER ABDOMEN: No free air under the diaphragm. IMPRESSION: No acute thoracic abnormality. Signed by: Dr. Paris Laurent M.D. on 11/16/2019 9:42 AM
--- NOTE | 2019-11-16 11:58 | NUR ---
AAOX3. ACYANOTIC. NO DISTRESS NOTED. DIALYSIS NURSE AT BEDSIDE PREPARING TO INITIATE TREATMENT.
--- NOTE | 2019-11-16 12:07 | Progress Note ---
DATE: 11/16/2019 CONSULTANTS: 1. Dr. Benjamin Falcon with Pulmonology. 2. Dr. Lloyd with Nephrology. 3. Dr. Medeiros with Infectious Disease. 4. Dr. Damian with Cardiology. CHIEF COMPLAINT: Shortness of breath and generalized weakness. SUBJECTIVE: The patient is sitting up in a chair with no acute distress. Reports poor appetite and generalized weakness, but otherwise no chest pain, shortness of breath, nausea, or vomiting. PHYSICAL EXAMINATION: VITAL SIGNS: Temperature 98.0, pulse is 97, respirations 20, blood pressure 137/100, pulse ox is 99% on room air. GENERAL: No acute distress. HEENT: Normocephalic, atraumatic. CARDIOVASCULAR: Regular rate and rhythm. LUNGS: Clear to auscultation. ABDOMEN: Soft and nontender. Obese. MUSCULOSKELETAL: Moves all extremities. No edema. NEUROLOGIC: Alert, awake, and oriented x3. IMPRESSION: 1. Acute respiratory distress due to viral pneumonia COVID-19. Resolved. Off antibiotics. Pulmonology and ID on the case. 2. End-stage renal disease. Tunneled catheter placed, HD initiated. Pending HD chair time for outpatient COVID. 3. Acute systolic congestive heart failure. Echo with EF of 25% to 30%. Continue carvedilol and fluid management per Renal. Cardiology on board. 4. History of hypertension. Stable on beta blockers. 5. Hypocalcemia. Defer to Renal. 6. Elevated CK. Trended. 7. Obesity with BMI of 37. Lifestyle modification discussed. 8. Deep vein thrombosis prophylaxis. On Lovenox. DISPOSITION: Home once outpatient HD has been set up. Dictated by MATY Mcdaniels Maribel [place] MD MY/MODL /[id number]
--- NOTE | 2019-11-16 12:35 | NUR ---
Dr. Marquis Khan called for patient status update. Ordered for BMP and ionized calcium for tomorrow AM labs. Orders read back and verified. Entered as ordered.
[2019-11-16 12:54] LABS: BASOPHILS % 0.4 % (0.0-1.0); HEMATOCRIT 37.4 % (38.2-49.6); HEMOGLOBIN 12.2 g/dL (14.0-18.0); LYMPHOCYTES # (AUTO) 0.6 (1.0-3.2); LYMPHOCYTES % 20.9 % (18.0-39.1); MEAN CORPUSCULAR HEMOGLOBIN 27.5 pg (28-32); MEAN CORPUSCULAR HGB CONC 32.6 g/dL (31-35); MEAN CORPUSCULAR VOLUME 84.4 fL (81-99); MONOCYTES # (AUTO) 0.3 (0.2-0.8); MONOCYTES % 10.3 % (4.4-11.3); NEUTROPHILS # (AUTO) 1.9 (2.1-6.9); PLATELET COUNT 127 x10e3/uL (140-360); RED BLOOD COUNT 4.43 x10e6/uL (4.3-5.7); RED CELL DISTRIBUTION WIDTH 12.7 % (11.7-14.4)
[2019-11-16 13:17] LABS: ALBUMIN 3.3 g/dL (3.5-5.0); ANION GAP 16.2 mmol/L (8-16); CALCIUM 7.1 mg/dL (8.4-10.2); CREATININE, SERUM 4.58 mg/dL (0.72-1.25); POTASSIUM 4.2 mmol/L (3.5-5.1)
[2019-11-16] MEDS ORDERED: HEPARIN SOD (PORCINE) 1000 UNIT/ML SDV IV PRN (13:30)
--- NOTE | 2019-11-16 13:33 | Progress Note ---
DATE: SUBJECTIVE: The patient is not complaining of any dyspnea or cough. He still has a temporary dialysis catheter. PHYSICAL EXAMINATION: VITAL SIGNS: The blood pressure is 107/55 and saturation is 96%. Respiratory rate is 20. HEENT: Shows no facial swelling or erythema. CARDIAC: Reveals regular rate and rhythm with normal S1 and S2. LUNGS: Auscultation of lungs reveals rhonchorous breath sounds bilaterally. There is no wheezing. ABDOMEN: Soft and nontender. There is no rebound or guarding. EXTREMITIES: Shows no leg edema or calf tenderness. There is no cyanosis or clubbing. SKIN: Shows no rashes. NEUROLOGICAL: Shows no focal abnormalities. IMPRESSION: 1. Stlip-ss-ntrzfgn renal failure. 2. Polycystic kidney disease. 3. Viral pneumonia and COVID-19 infection. PLAN: 1. Continue dialysis. The patient will need placement with the dialysis center that is equipped for COVID patients. 2. Continue current cardiac regimen. 3. Oxygen and cough suppressants as needed. Benjamin Falcon MD [facility]/MODL /[id number]
--- NOTE | 2019-11-16 14:30 | NUR ---
Nutrition Screen Note RD Recommendation for Physician: -Continue renal diet -If PO intake <50% of meals, offer Nepro nutrition supplement Plan of Care: RD following, monitoring for tolerance and adequacy Nutrition reason for involvement: Length of stay Primary Diagnose(s): viral pneumonia, renal failure, hypocalcemia, rhabdomolysis PMH: HTN Ht: 71 in Wt: 257 lb BMI: 35.8 kg/m2 IBW:[address] Assessment: (11/16/19) Chart reviewed. Labs and meds reviewed. Pt is a 44 year old male admitted with viral pneumonia, renal failure, hypocalcemia, and rhabdomolysis. A HD catheter was placed yesterday and dialysis was initiated per MD note. Unable to enter room since pt is COVID-19+; therefore, spoke to pt over the phone. Pt stated he is eating about 50% of his meals. Pt was unsure of any weight changes and stated he usually weighs 259-260 lbs. No N/V/D/C or chewing/swallowing issues. Will continue to monitor Current Diet: renal Malnutrition Evaluation (11/16/19) The patient does not meet criteria for a specified degree of malnutrition at this time. Will re-evaluate at follow-up as appropriate. Diet Education Needs Assessment: Pt requested diet education materials regarding a renal diet. RD gave written materials to nursing to provide to the patient. RD included the dietitians office number on the information provided and told pt to contact RD if he had any questions or desired verbal education. Nutrition Care Level: low Signed: Susanna Callejas RD, LD
[2019-11-16] MEDS: ENOXAPARIN 30 MG/0.3 ML SYR SC SCH (16:05)
--- NOTE | 2019-11-16 16:05 | NUR ---
AAOX3. ACYANOTIC. POST DIALYSIS TREATMENT. PT RESTING IN HIGH TAPIA'S POSTION IN BED USING SMART PHONE. NO DISTRESS NOTED. CALL LIGHT IN REACH. SIDE RAILS UP X2. BED LOW. PT REPORTS HEADACHE AND REQUESTING TYLENOL.
--- NOTE | 2019-11-16 19:49 | Progress Note ---
DATE: 11/16/2019 Cardiology Progress Note SUBJECTIVE: Denies any chest pain or shortness of breath, tolerating dialysis well. OBJECTIVE: VITAL SIGNS: Temperature 98.8, heart rate 94, blood pressure 186/96, and respiratory rate 20. Of note, blood pressure has fluctuated significantly with previous rate of 107/55. O2 saturation 96% on room air. GENERAL: In no acute distress, alert. NECK: No JVD. CHEST: Clear to auscultation. CARDIOVASCULAR: Regular rate and rhythm. Normal S1, S2. No S3. No S4. No murmurs, no rubs. Dialysis tunneled catheter in place. ABDOMEN: Soft. Bowel sounds positive. EXTREMITIES: No edema. CARDIOVASCULAR MEDICATIONS: Reviewed: 1. Carvedilol 3.125 mg every 12 hours. 2. Lovenox 30 mg subcu daily. LABORATORY DATA: White blood cells 2.8, hemoglobin 12.2, and platelets 127. Sodium 137, potassium 4.2, chloride 105, bicarbonate 20, BUN 39, creatinine 4.5, glucose 124, and calcium 7.1. Total bilirubin 0.4, AST 24, ALT 27, alkaline phosphatase 60. BNP 504. Total protein 6.6 and albumin 3.3. Blood cultures, no growth after five days. IMAGING DATA: Chest x-ray, no acute thoracic abnormality. ASSESSMENT: 1. Acute respiratory distress in the setting of COVID-19, community-acquired pneumonia. 2. End-stage renal disease. 3. Ofnda-ro-kdiptrs systolic heart failure. 4. Hypertension. 5. Morbid obesity. RECOMMENDATIONS: 1. Continue beta blockers and up titrate dosing. 2. Continue volume optimization and metabolic optimization with Nephrology. 3. Advise coronary risk stratification. Given age and absence of other comorbidities, suspect nonischemic etiology. Await negative COVID-19 on followup testing. Tk Nelson MD AFV/MODL /[id number]
--- NOTE | 2019-11-16 20:30 | NUR ---
Patient is alert and oriented. walks independently, refused bed alarm. Side rails up. Bed locked. Call light within reached. Instructed to use when needed assistance. Patient expressed understanding.
[2019-11-17] VITALS (8 sets, daily range): BP systolic 90–127; BP diastolic 75–99
[2019-11-17 06:31] LABS: CALCIUM IONIZED 0.9 mmol/L (1.09-1.30)
[2019-11-17 06:49] LABS: ANION GAP 19.1 mmol/L (8-16); CALCIUM 7.3 mg/dL (8.4-10.2); CREATININE, SERUM 4.05 mg/dL (0.72-1.25); POTASSIUM 4.1 mmol/L (3.5-5.1)
[2019-11-17] MEDS: ASCORBIC ACID 500 MG TAB PO SCH (08:43)
[2019-11-17] MEDS: CARVEDILOL 3.125 MG TAB PO SCH ×2 (08:43→21:14)
[2019-11-17] MEDS: SODIUM BICARBONATE 650 MG TAB PO SCH ×2 (08:43→16:45)
[2019-11-17] MEDS: CALCIUM CARBONATE 500 MG CHEWABLE TABS PO SCH ×3 (08:43→21:14)
--- NOTE | 2019-11-17 10:07 | Progress Note ---
DATE: SUBJECTIVE: The patient has no new complaints. He is eager to go home. PHYSICAL EXAMINATION: VITAL SIGNS: His temperature is 99.5, blood pressure is 115/85, pulse is 83, saturation is 100%. HEENT: Shows no facial swelling or erythema. CARDIAC: Reveals regular rate and rhythm with normal S1, S2. LUNGS: Auscultation of lungs reveals clear breath sounds bilaterally. There is no wheezing. ABDOMEN: Soft and nontender. There is no rebound or guarding. EXTREMITIES: Shows no leg edema or calf tenderness. There is no cyanosis or clubbing. SKIN: Shows no rashes. NEUROLOGICAL: Shows no focal abnormalities. LABORATORY DATA: BUN to creatinine ratio is 30 to 4.05 and the carbon dioxide is 21. Other electrolytes are within normal limits. White blood cell count is 2.8, hemoglobin is 12.2, and platelet count is 127. ASSESSMENT: 1. Acute on chronic renal failure. 2. Polycystic kidney disease. 3. Viral pneumonia and COVID-19 infection. PLAN: 1. Arrange for outpatient dialysis. 2. Complete antibiotics. 3. Repeat COVID testing and follow up in 1-2 weeks. Benjamin Falcon MD [facility]/SHAUNNAL /[id number]
--- NOTE | 2019-11-17 12:53 | Progress Note ---
DATE: 11/17/2019 CONSULTANTS: 1. Dr. Benjamin Falcon, bryologist. 2. Dr. Lloyd with Nephrology. 3. Dr. Medeiros with Infectious Disease. 4. Dr. Damian with Cardiology. CHIEF COMPLAINT: Shortness of breath and generalized weakness. SUBJECTIVE: The patient is sitting up in a chair with no acute distress, chest pain, nausea, or vomiting. He reports he is feeling down/depressed from being in one place for a long time. Discussed about starting depression medication, but refused. PHYSICAL EXAMINATION: VITAL SIGNS: Temperature 99.5, pulse is 83, respirations 20, blood pressure 115/85, pulse ox is 100% on room air. GENERAL: No acute distress. HEENT: Normocephalic and atraumatic. CARDIOVASCULAR: Regular rate and rhythm. LUNGS: Clear to auscultation. ABDOMEN: Soft and nontender. NEUROLOGIC: Alert, awake, and oriented x3. PSYCH: Depressed. LABORATORY DATA: Sodium 139, potassium 4.1, CO2 of 21, BUN 30, creatinine 4.05, calcium 7.3, ionized calcium is 0.9. IMPRESSION: 1. Acute respiratory distress due to viral pneumonia with COVID-19, resolved, off antibiotics, Pulmonary and ID on board. 2. End-stage renal disease, tunnel cath placed, HD initiated. Pending [facility] HD chair for outpatient. 3. Acute systolic congestive heart failure. Echo with EF 25% to 30%. Continue fluid management per Renal, and beta blockers, Cardiology on board. 4. History of hypertension, stable on beta blockers. 5. Hypocalcemia, replaced. 6. Elevated CK, trended down. 7. Obesity with BMI of 37, lifestyle modification. 8. Depression, refused medications. 9. Deep vein thrombosis prophylaxis, on Lovenox. DISPOSITION: Home once outpatient HD has been set up. Dictated by MATY Mcdaniels Maribel Hamilton MD MY/MODL /[id number]
[2019-11-17] MEDS: ENOXAPARIN 30 MG/0.3 ML SYR SC SCH (16:45)
--- NOTE | 2019-11-17 21:17 | NUR ---
Patient has no complains at this time. Still refusing bed alarm. Side rails up. Call light within reached.
[2019-11-18] VITALS (8 sets, daily range): BP systolic 114–131; BP diastolic 67–94
[2019-11-18 06:28] LABS: ALBUMIN 3.1 g/dL (3.5-5.0); ANION GAP 19.9 mmol/L (8-16); POTASSIUM 3.9 mmol/L (3.5-5.1)
--- NOTE | 2019-11-18 08:07 | NUR ---
EMAILED [facility] ABOUT UPDATE, PENDING RESPONSE.
[2019-11-18] MEDS: SODIUM BICARBONATE 650 MG TAB PO SCH ×2 (09:25→16:13)
[2019-11-18] MEDS: ASCORBIC ACID 500 MG TAB PO SCH (09:25)
[2019-11-18] MEDS: CALCIUM CARBONATE 500 MG CHEWABLE TABS PO SCH ×3 (09:25→21:10)
[2019-11-18] MEDS: CARVEDILOL 3.125 MG TAB PO SCH ×2 (09:25→21:10)
--- NOTE | 2019-11-18 09:46 | NUR ---
FAXED NOTES THAT STATE [facility]SD, PER [facility] THEY CANNOT PROCESS WITH OUT THE DIAGNOSIS
--- NOTE | 2019-11-18 10:12 | Progress Note ---
DATE: 11/18/2019 Cardiology Progress Note SUBJECTIVE: Denies chest pain or shortness of breath. Has no new complaints today. OBJECTIVE: VITAL SIGNS: Temperature 98.5, heart rate 81, respiratory rate 17, blood pressure 125/91, O2 saturation 99% on room air, undergoing dialysis today. CARDIOVASCULAR MEDICATIONS: Reviewed. 1. Carvedilol 6.25 mg every 12 hours. 2. Hydralazine 10 mg p.r.n. q.4 hours. 3. Lovenox 30 mg subcu daily. STUDIES: Reviewed. White blood cells 2.8, hemoglobin 12.2, platelets 127. Potassium 3.9, creatinine 5, bicarbonate 19, albumin 3.1. INR 0.9. UDS negative. ASSESSMENT AND PLAN: 1. Acute respiratory distress in the setting of COVID-19 community-acquired pneumonia. 2. End-stage renal disease, now on dialysis. 3. Acute systolic heart failure, LVEF 25 to 30%, hypertension, hypokalemia, morbid obesity. RECOMMENDATIONS: 1. Continue carvedilol at current dose. 2. Volume optimization per Nephrology. 3. Elective coronary angiography for ischemic evaluation given systolic heart failure is advised. The patient to followup as an outpatient prior to the schedule. MD TAMIKA De Leon/VICENTE /[id number]
--- NOTE | 2019-11-18 10:52 | NUR ---
SPOKE WITH PEMA AT [facility] ADMISSION, ROSIE THE SPECIALIST WORKING THIS CASE IS NOT AVAILABLE WAS TOLD SHE CANNOT CONFIRM RECEIPT OF DOCUMENTS I FAXED. SO LEFT MESSAGE TO RETURN CALL.
--- NOTE | 2019-11-18 13:52 | NUR ---
SPOKE Qian GUEVARA REGARDING [facility]. STATES HE SPOKE [facility] REGARDING OUTPT HD CHAIR TIME. NONE AT THIS TIME. [facility] CALLED. STATES [facility] WOULD LIKE TO BE CONTACTED ONCE CHAIR TIME GIVEN. WILL UPDATE [facility].
--- NOTE | 2019-11-18 14:05 | NUR ---
[id number] late entery 11/16
--- NOTE | 2019-11-18 14:10 | NUR ---
RECEIVED A CALL FROM COLETTE GIVENS TO FAX CLINICALS TO THE LOCAL CLINIC AT [phone], FAXED. SHE STATES SHE WILL GET AUTH FROM [facility] AND CALL OR EMAIL ME THE CHAIR TIME.
--- NOTE | 2019-11-18 15:46 | NUR ---
PT WILL BE GOING TO [facility] [address], [place] [address]. WAS TOLD BY ADMISSION LINE DARLEEN THAT IT IS STILL PENDING A PAYMENT PATHWAY SO WILL NOT BE ABLE TO GET APPROVAL TODAY, WILL UPDATE ME TOMORROW.
[2019-11-18] MEDS: ACETAMINOPHEN 325 MG TAB PO PRN (16:14)
--- NOTE | 2019-11-18 16:40 | Progress Note ---
DATE: 11/17/2019 SUBJECTIVE: The patient is doing well. There are no new complaints. REVIEW OF SYSTEMS: HEENT: Negative. PULMONARY: Negative. CARDIAC: Negative. PHYSICAL EXAMINATION: GENERAL: He is currently alert, oriented, does not seem to be in acute distress. VITAL SIGNS: Afebrile. IMPRESSION: 1. COVID-19, doing well. 2. Chronic kidney disease, on hemodialysis. We are awaiting for dialysis placement. 3. Congestive heart failure, being controlled. 4. Obesity. PLAN: We will follow. Basia Medeiros MD [facility]/MODL /[id number]
--- NOTE | 2019-11-18 16:40 | Progress Note ---
DATE: SUBJECTIVE: Mr. Jacobson is doing well. He has no new complaints. REVIEW OF SYSTEMS: HEENT: Negative. PULMONARY: Negative. CARDIAC: Negative. PHYSICAL EXAMINATION: GENERAL: He is currently alert and oriented, does not seem to be in acute distress. VITAL SIGNS: Stable, currently afebrile. HEENT: He is not icteric. NECK: Supple. CHEST: Clear bilaterally. HEART: S1, S2. No murmurs. ABDOMEN: Soft. Bowel sounds present. EXTREMITIES: No edema. SKIN: No rash. IMPRESSION: 1. Cychv-ot-hwrxlsu congestive heart failure, seems to be doing well. 2. Hypertension, stable. 3. Chronic kidney disease, dialysis is being arranged. 4. Obesity. 5. Depression. PLAN: Stable from Infectious Disease point of view, can be discharged once dialysis is arranged. MD PATRICK Gonzalez/MODMarina /[id number]
--- NOTE | 2019-11-18 17:09 | Progress Note ---
DATE: SUBJECTIVE: The patient feels better. He is awaiting for arrangements for his dialysis. PHYSICAL EXAMINATION: VITAL SIGNS: The patient is afebrile. The vital signs are stable. HEENT: Shows no facial swelling or erythema. CARDIAC: Reveals regular rate and rhythm with normal S1, S2. LUNGS: Auscultation of lungs reveals clear breath sounds bilaterally. There is no wheezing. ABDOMEN: Soft, nontender. There is no rebound or guarding. IMPRESSION: 1. Viral pneumonia and COVID-19 infection. 2. Fpmzy-ak-ranvxld renal failure. 3. Polycystic kidney disease. PLAN: 1. Arrange for outpatient dialysis. 2. Oxygen as needed. Benjamin Falcon MD Behzad/VICENTE /[id number]
--- NOTE | 2019-11-18 17:34 | Progress Note ---
DATE: 11/18/2019 CONSULTANTS: 1. Dr. Benjamin Falcon, cytologist. 2. Dr. Lloyd, Nephrology. 3. Dr. Medeiros, ID. 4. Dr. Damian, Cardiology. CHIEF COMPLAINT: Shortness of breath and generalized weakness. SUBJECTIVE: Status post dialysis this morning. He denies any chest pain, shortness of breath, nausea, or vomiting. He reports poor appetite, but otherwise much improved. PHYSICAL EXAMINATION: VITAL SIGNS: Temperature 98.1, pulse is 64, respirations 18, blood pressure 114/81, pulse ox is 100% on room air. GENERAL: No acute distress. HEENT: Normocephalic and atraumatic. CARDIOVASCULAR: Regular rate and rhythm. LUNGS: Clear to auscultation. ABDOMEN: Soft and nontender. NEUROLOGIC: Alert, awake, and oriented x3. MUSCULOSKELETAL: Moves all extremities. PSYCH: Depressed. LABORATORY DATA: Sodium 138, potassium 3.9, carbon dioxide is 19, BUN 42, creatinine 5.0, estimated GFR is 13, calcium 7.0, albumin 3.1. IMPRESSION: 1. Acute respiratory distress due to viral pneumonia with COVID-19, resolved, off antibiotics, Pulmonary and ID on board. 2. End-stage renal disease, tunnel catheter placed, pending outpatient dialysis setup. 3. Acute systolic congestive heart failure with no exacerbation, EF of 25% to 30%. Cardiology on the case, continue beta-blockers and fluid management per renal. 4. History of hypertension, stable on beta blockers. 5. Hypocalcemia, improved. 6. Obesity with BMI of 37, lifestyle modifications. 7. Depression, refused medications. 8. Deep vein thrombosis prophylaxis, on Lovenox. 9. Disposition once outpatient dialysis has been set up. Dictated by MATY Mcdaniels Maribel Hamilton MD MY/MODL /[id number]
--- NOTE | 2019-11-18 21:10 | NUR ---
Patient refused IV insertion.
[2019-11-19] VITALS: BP 120/86
[2019-11-19 04:00] VITALS: BP 122/90
[2019-11-19 08:00] VITALS: BP 95/72
[2019-11-19 09:00] VITALS: BP 95/72
[2019-11-19] MEDS: CARVEDILOL 3.125 MG TAB PO SCH (09:00)
[2019-11-19] MEDS: ASCORBIC ACID 500 MG TAB PO SCH (09:27)
[2019-11-19] MEDS: SODIUM BICARBONATE 650 MG TAB PO SCH (09:27)
[2019-11-19] MEDS: CALCIUM CARBONATE 500 MG CHEWABLE TABS PO SCH ×2 (09:27→16:49)
--- NOTE | 2019-11-19 10:20 | NUR ---
SPOKE WITH ROSIE WITH [facility] STATES WILL NOT PROCESS UNTIL INSURABILITY ASSESSMENT IS COMPLETED, I ASKED HER IF SHE HAD SPOKEN WITH THE PT AND SHE ADMITTED NO SHE HADN'T, SO SHE EMAILED ME THE FORM I HAD ASSISTANCE FROM NURSE TO COMPLETE FORM, EMAILED ANSWERS AND FAXED BACK TO HER. STILL PENDING AUTH.
[2019-11-19 12:00] VITALS: BP 103/76
--- NOTE | 2019-11-19 15:15 | NUR ---
PT ACCEPTED AT [facility] IN [facility], T, TH AND SAT AT 4PM [address] [place] [address] (Phone #) (Fax #)
--- NOTE | 2019-11-19 15:20 | Progress Note ---
DATE: SUBJECTIVE: The patient is still not complaining of any symptoms. He feels better. He is awaiting placement for dialysis. PHYSICAL EXAMINATION: VITAL SIGNS: Blood pressure is 103/76, saturation is 99%, pulse is 85. HEENT: No facial swelling or erythema. CARDIAC: Regular rate and rhythm with normal S1, S2. LUNGS: Auscultation of lungs shows clear breath sounds bilaterally. There is no wheezing. ABDOMEN: Soft, nontender. There is no rebound or guarding. EXTREMITIES: No leg edema or calf tenderness. There is no cyanosis or clubbing. SKIN: No rashes. NEUROLOGICAL: No focal abnormalities. IMPRESSION: 1. Viral pneumonia and coronavirus disease-19 infection. 2. Acute on chronic renal failure. 3. Polycystic kidney disease. PLAN: 1. Await arrangements for outpatient dialysis. 2. Oxygen. 3. Tylenol as needed. MD SHAY Iqbal/VICENTE /[id number]
[2019-11-19] MEDS ORDERED: COREG3.125 MG PO (16:06)
[2019-11-19] MEDS ORDERED: SODIUM BICARBO650 MG PO (16:06)
--- NOTE | 2019-11-19 16:51 | NUR ---
Patient received discharge order from Dr. Hamilton's BLOOM CONVEYOR OPERATOR after being cleared by Dr. Medeiros, Dr. Ahmet Falcon, and Dr. Bennett Patient had hemodialysis set up and was explained when and how to go about getting his appointments. This screen writer explained discharge paperwork, prescriptions, and follow up. Patient verbalized understanding. Patient IV removed yesterday, however patient is being discharged with his right chest subclavian to continue his hemodialysis. Walked patient to sister's truck at 1650. Patient given all instructions for COVID discharge.
--- NOTE | 2019-11-19 18:45 | Progress Note ---
DATE: SUBJECTIVE: Mr. Jacobson is doing well. There are no new complaints. PHYSICAL EXAMINATION: GENERAL: Currently alert and oriented. Does not seem in acute distress. VITAL SIGNS: Stable. Currently afebrile. HEENT: Not icteric. NECK: Supple. CHEST: Clear. HEART: S2, S2. ABDOMEN: Soft. IMPRESSION AND PLAN: 1. Coronavirus disease-19, at present clinically stable. 2. End-stage renal disease, on dialysis . 3. Congestive heart failure, stable from Infectious Disease point of view. Discharge once dialysis unit is available. MD PATRICK Gonzalez/MODL /[id number]
--- NOTE | 2019-11-20 02:58 | Discharge Summary ---
PRIMARY CARE PHYSICIAN: None. DISCHARGE DIAGNOSES: 1. Acute respiratory distress due to viral pneumonia coronavirus disease-2019. 2. End-stage renal disease. 3. Acute systolic congestive heart failure. 4. History of hypertension. 5. Hypocalcemia. 6. Obesity. CONSULTANTS: 1. Dr. Benjamin Falcon, metal expediter. 2. Dr. Damian, with Cardiology. 3. Dr. Medeiros, with ID. 4. Dr. Lloyd, with Nephrology. PROCEDURE: Tunneled HD catheter replaced. HISTORY: Per HPI. HOSPITAL COURSE: The patient presented with shortness of breath and generalized weakness. He was tested for COVID-19, which was positive. He was also noted to have elevated creatinine of 6.20. 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 Nephrology is consulted and a tunneled catheter was placed, and initiated on dialysis. He was also noted to have elevated BNP. Cardiology was consulted and echocardiogram showed EF of 25-30% with impacted diastolic filling. He was started on beta-blockers and fluid management with dialysis. He remains stable throughout. No shortness of breath. Outpatient dialysis was setup and was discharged to home today to find and followup with the PCP and college or university registrar. PHYSICAL EXAMINATION: VITAL SIGNS: Temperature 97.5, pulse is 85, respirations 18, blood pressure 103/76, pulse ox 99% on room air. GENERAL: No acute distress. CARDIOVASCULAR: Regular rate and rhythm. LUNGS: Clear to auscultation. ABDOMEN: Soft and nontender. NEUROLOGIC: Alert, awake, and oriented x3. MUSCULOSKELETAL: Moves all extremities. PSYCH: Calm. DISCHARGE MEDICATIONS: Please see medication reconciliation list. FOLLOW UP: PCP, Nephrology, and Cardiology in 1 to 2 weeks. TIME SPENT: Total discharge time is 32 minutes. Dictated by MATY Mcdaniels Maribel Hamilton MD MY/MODL /[id number]
== END 2019-11-19 16:30 | disposition home or self-care (01) | DRG 177 ==
LOC: ER 21:46 → ERHOLD 11-11 01:51 → IMCU 11-11 01:57
PROVIDERS: ADMIT Internal Medicine; ATTEND Internal Medicine
PROC: 5A1D70Z Performance of Urinary Filtration, Intermittent, Less than 6 Hours Per Day (ICD-10-PCS; principal; 2019-11-15)
PROC: 0JH63XZ Insertion of Tunneled Vascular Access Device into Chest Subcutaneous Tissue and Fascia, Percutaneous Approach (ICD-10-PCS; 2019-11-15)
PROC: 02HV33Z Insertion of Infusion Device into Superior Vena Cava, Percutaneous Approach (ICD-10-PCS; 2019-11-15)
DX: U07.1 COVID-19 (principal); J12.89 Other viral pneumonia; J80 Acute respiratory distress syndrome; N18.6 End stage renal disease; I50.23 Acute on chronic systolic (congestive) heart failure; N17.9 Acute kidney failure, unspecified; I13.2 Hypertensive heart and chronic kidney disease with heart failure and with stage 5 chronic kidney disease, or end stage renal disease; E87.2 Acidosis; Q61.2 Polycystic kidney, adult type; E83.51 Hypocalcemia; Z99.2 Dependence on renal dialysis; E66.9 Obesity, unspecified; Z68.35 Body mass index [BMI] 35.0-35.9, adult; F32.9 Major depressive disorder, single episode, unspecified; Z99.81 Dependence on supplemental oxygen
CPT/HCPCS: 36415; 36558; 71045; 71250; 74470; 76770; 76937; 77001; 80048; 80053; 80307; 81001; 82040; 82550; 82553; 83605; 83880; 83970; 84100; 84484; 85025; 85610; 86704; 86706; 87040; 87340; 90962; 93005; 93306; 99284; C1769; C1892; J0360; J0456; J0610; J0696; J1644; J1650; J2150; J2250; J2270; J2405; J2543; J3010; J7030; J7050; U0002